=== PATIENT | male | born 1955 | race Caucasian/White ===

== ENCOUNTER → 2017-11-17 15:29 | Outpatient (CLI) | payer BC, SELFPAY ==
[2017-11-17 18:29] LABS: HIV - WCH Non-Reactive (Nonreactive)
[2017-11-19 13:57] LABS: Hep B Surface Antibodies Non Reactive (.); Hep C Antibodies 0.1 s/co ratio (0.0-0.9)
== END ==
PROVIDERS: Family Provider Family Medicine; PCP Family Medicine; Visit Provider Family Medicine
DX: S91.332A Puncture wound without foreign body, left foot, initial encounter (principal)
CPT/HCPCS: 36415; 86703; 86706; 86803

== ENCOUNTER → 2018-01-05 13:46 | Outpatient (CLI) | payer OTHER, SELFPAY ==
[2018-01-05 16:19] LABS: PSA,Total - Annual Screen 4.14 ng/mL (0.00-4.00)
== END ==
PROVIDERS: Family Provider Family Medicine; PCP Family Medicine; Visit Provider Urology
DX: Z12.5 Encounter for screening for malignant neoplasm of prostate (principal)
CPT/HCPCS: 36415; 84153; G0103

== ENCOUNTER → 2018-03-16 10:48 | Outpatient (CLI) | payer OTHER, SELFPAY ==
[2018-03-16 13:36] LABS: HIV - WCH Non-Reactive (Nonreactive)
[2018-03-20 11:17] LABS: HEPATITIS B SURFACE AG Negative (Negative); Hep C Antibodies 0.1 s/co ratio (0.0-0.9)
== END ==
PROVIDERS: Family Provider Family Medicine; PCP Family Medicine; Visit Provider Family Medicine
DX: S91.339A Puncture wound without foreign body, unspecified foot, initial encounter (principal)
CPT/HCPCS: 36415; 86703; 86803; 87340

== ENCOUNTER → 2018-07-16 15:18 | Outpatient (CLI) | payer OTHER, SELFPAY ==
[2018-07-16 17:57] LABS: PSA,Total- Diagnostic 4.15 ng/mL (0.0-4.0)
== END ==
PROVIDERS: Family Provider Family Medicine; PCP Family Medicine; Referring Provider Urology; Visit Provider Urology
DX: R97.20 Elevated prostate specific antigen [PSA] (principal)
CPT/HCPCS: 36415; 84153

== ENCOUNTER → 2018-07-25 09:21 | Outpatient (CLI) | payer OTHER, SELFPAY ==
[2018-07-25 10:24] LABS: Cholesterol 132 mg/dL (200); Glucose 90 mg/dL (74-106); High Density Lipoprotein 40 mg/dL; Triglycerides 65 mg/dL; Very Low Density Lipoprotein 13 mg/dL (5-40)
== END ==
PROVIDERS: Family Provider Family Medicine; PCP Family Medicine; Referring Provider Family Medicine; Visit Provider Family Medicine
DX: Z00.00 Encounter for general adult medical examination without abnormal findings (principal)
CPT/HCPCS: 36415; 80061; 82947

== ENCOUNTER → 2019-10-31 | Outpatient (CLI) | payer OTHER, SELFPAY ==
[2019-10-31 16:02] LABS: Anion Gap 6 (5-15); BUN 13 mg/dL (7-18); BUN/Creat Ratio 13.9 RATIO (10-20); Calcium,Total 8.4 mg/dL (8.5-10.1); Chloride 109 mmol/L (98-107); Cholesterol 153 mg/dL (200); Creatinine, Serum 0.94 mg/dL (0.70-1.30); EST Glomerular Filtration Rate 87 mL/min (>60); Est Glom Filt Rate - Afr Amer 105 mL/min (>60); Glucose 93 mg/dL (74-106); High Density Lipoprotein 41 mg/dL; Potassium 3.9 mmol/L (3.5-5.1); Sodium Level 142 mmol/L (136-145); Triglycerides 92 mg/dL; Very Low Density Lipoprotein 18 mg/dL (5-40)
== END | disposition home or self-care (01) ==
LOC: MTLAB 14:25
PROVIDERS: PCP Family Medicine; Referring Provider Family Medicine; Visit Provider Family Medicine
DX: Z13.1 Encounter for screening for diabetes mellitus (principal); Z13.220 Encounter for screening for lipoid disorders
CPT/HCPCS: 36415; 80048; 80061

== ENCOUNTER 2020-08-18 15:06 | Outpatient (RCR) | payer OTHER, SELFPAY ==
[2020-08-18] MEDS: COVID-19 VACC, MRNA(PFIZER)/PF 30 MCG/0.3 ML SYRINGE IM (07:11)
[2020-09-08] MEDS: COVID-19 VACC, MRNA(PFIZER)/PF 30 MCG/0.3 ML SYRINGE IM (07:03)
== END 2020-11-10 23:59 ==
LOC: IMMUN 15:06
PROVIDERS: PCP Family Medicine; Referring Provider Family Medicine; Visit Provider Family Medicine
DX: Z23 Encounter for immunization (principal)
CPT/HCPCS: 0001A; 0002A; 91300

== ENCOUNTER → 2020-09-25 09:25 | Outpatient (CLI) | payer OTHER, SELFPAY ==
--- NOTE | 2020-09-25 09:28 | RAD_ITS ---
INDICATION: SHORTNESS OF BREATH EXAMINATION/TECHNIQUE: X-RAY - XR Chest 2 Views COMPARISON: None. FINDINGS: The lungs are clear. The cardiomediastinal silhouette is unremarkable. No pleural effusion or pneumothorax. No acute osseous abnormalities. RAD/Chest PA and Lateral IMPRESSION: No acute radiographic abnormalities. Electronically Signed: Jesse Buitrago MD at 17:03 EDT Tel , Service support ,
[2020-09-25 12:47] LABS: Absolute Lymphocyte Count 1.13 X10^3/uL (0.83-4.51); Basophil# 0.08 X10^3/uL; Basophil% 1.2 % (0-1); Eosinophil# 0.59 X10^3/uL; Eosinophils% 9.2 % (0-5); Hematocrit 47.1 % (40-54); Hemoglobin 14.6 g/dL (13.0-16.5); Lymphocyte # 1.13 X10^3/ul (0.83-4.51); Lymphocyte % 17.6 % (19-41); Mean Corpuscular Hgb 28.6 pg (27.0-32.0); Mean Corpuscular Volume 92.4 fL (80-94); Mean Platelet Vol. 10.4 fl (6.2-12.0); Monocyte# 0.58 X10^3/uL; NRBC Flagged by Analyzer 0 % (0-5); Neutrophil % 62.5 % (47-70); Platelet Count 282 K/mm3 (150-450); RBC Distribution Width CV 12.9 % (11.6-14.6); RBC Distribution Width SD 44.2 fl (35.1-43.9); White Blood Count 6.4 K/mm3 (4.4-11.0)
[2020-09-25 13:15] LABS: ALB/GLOB Ratio 1.1 RATIO (0.9-2.4); AST(SGOT) 17 U/L (15-37); Alanine Aminotransfer ALT/SGPT 26 U/L (16-61); Albumin, Serum 3.9 g/dL (3.2-5.0); Alkaline Phosphatase 56 U/L (45-117); Anion Gap 3 (5-15); BUN 11 mg/dL (7-18); BUN/Creat Ratio 10.5 RATIO (10-20); Calcium,Total 8.8 mg/dL (8.5-10.1); Chloride 106 mmol/L (98-107); Creatinine, Serum 1.05 mg/dL (0.70-1.30); EST Glomerular Filtration Rate 76 mL/min (>60); Est Glom Filt Rate - Afr Amer 92 mL/min (>60); Globulin 3.5 g/dL (2.2-4.2); Glucose 86 mg/dL (74-106); Magnesium 2.2 mg/dL (1.6-2.6); Potassium 4.3 mmol/L (3.5-5.1); Protein, Total 7.4 g/dL (6.4-8.2); Sodium Level 140 mmol/L (136-145); Thyroid Stim Hormone (TSH) 2.74 uIU/mL (0.358-3.74)
== END ==
PROVIDERS: PCP Family Medicine; Referring Provider Family Medicine; Visit Provider Family Medicine
DX: R00.2 Palpitations (principal); R06.02 Shortness of breath
CPT/HCPCS: 36415; 71046; 80053; 83735; 84443; 85025

== ENCOUNTER → 2020-10-12 13:05 | Outpatient (CLI) | payer OTHER, SELFPAY ==
--- NOTE | 2020-10-12 13:11 | STEWCON_ITS ---
Reason For Study: SOB Stress Results Protocol: Sammy Protocol WITH DEFINITY Maximum Predicted HR: 157 bpm Target HR: 133 bpm % Maximum Predicted HR: 96 % DurationHeart Rate Stage (mm:ss) (bpm) BP Comment BASELINE 62 152/824 CC DEFINITY FOR TEST STAGE 1 3:00 93 160/84 STAGE 2 3:00 100 142/74 STAGE 3 3:00 127 168/78NO CHEST PAIN STAGE 4 3:00 150 170/74STATES BREATHING HARDER, NO CHEST PAIN RECOVERY 83 132/80 Stress Duration: 12:00 mm:ss Maximum Stress HR: 150 bpm Baseline Echocardiogram Findings Stress Echo Wall motion Data Resting WM Intermediate WM Stress WM ECHO/Stress Test Echo W/Contrast Interpretation Summary Exercise stress echo. 65-year-old man with a family history of heart disease. Stress protocol: Resting EKG demonstrates normal sinus rhythm with a rate of 60 bpm normal inter vals noted resting blood pressures 152/82 mmHg. The patient exercised according to regular Sammy p rotocol for a total duration of 12 minutes. The maximum heart rate attained was 151 bpm which was 9 6% of maximum predicted heart rate the maximum workload was 13.4 metabolic equivalents. The p atient maintained sinus rhythm throughout the recording. At rest there were no ST changes noted t o suggest ischemia and at peak exercise upsloping ST changes were noted with did not denote ischem ia. No clinical angina was noted. The resting blood pressure was as noted above and the peak bl ood pressure was 170/74 mmHg which was a good blood pressure response to exercise. No clinical a ngina was noted. Stress echocardiogram. Stress echocardiographic images were obtained with and w ithout Definity enhancement. The estimated ejection fraction was 55% at rest and at peak exerci se there was thickening of all bhakta and reduction of left ventricular cavity size with peak ing of ejection fraction of 65% no wall motion abnormalities were noted. Conclusion: Normal exercise stress echo with no EKG criteria for ischemia. Normal resting and stress echocardiographic images. Good functional capacity. Ordering Physician: Yg Alcaraz Referring Physician: Yg Alcaraz Performed By: Dinorah Collazo RDCS, RVT
== END ==
PROVIDERS: PCP Family Medicine; Referring Provider Family Medicine; Visit Provider Family Medicine
DX: R06.02 Shortness of breath (principal)
CPT/HCPCS: 93017; 93350; Q9957; A4216; C8928

== ENCOUNTER → 2021-01-08 08:31 | Outpatient (CLI) | payer OTHER, SELFPAY | PROVIDERS: PCP Family Medicine; Referring Provider Nurse Practitioner Adult Health; Visit Provider Nurse Practitioner Adult Health | DX: R97.20 Elevated prostate specific antigen [PSA] (principal) | CPT/HCPCS: 36415; 84153 ==

== ENCOUNTER → 2021-01-28 11:27 | Outpatient (CLI) | payer OTHER, SELFPAY ==
--- NOTE | 2021-01-28 11:30 | RAD_ITS ---
INDICATION: COUGH EXAMINATION/TECHNIQUE: X-RAY - XR Chest 2 Views COMPARISON: 09/25/2020. FINDINGS: The lungs are clear. The cardiomediastinal silhouette is unremarkable. No pleural effusion or pneumothorax. No acute osseous abnormalities. RAD/Chest PA and Lateral IMPRESSION: No acute radiographic abnormalities. Electronically Signed: Jesse Buitrago MD at 17:25 EDT Tel , Service support ,
== END ==
PROVIDERS: PCP Family Medicine; Referring Provider Family Medicine; Visit Provider Family Medicine
DX: R05 Cough (principal)
CPT/HCPCS: 71046

== ENCOUNTER → 2021-02-02 | Outpatient (CLI) | payer OTHER, SELFPAY ==
--- NOTE | 2021-02-02 | IMM_PTH ---
PATIENT: SRI MEADOWS LOC: [facility] U#:[id number] AGE/SX: 65/M ROOM: RE02/02/[address]: Dr. Magno Clemons MD : 1955 BED: DIS: 02/02/2021 SPEC #: [id number] RECD: 02/03/21 14:46 STATUS: ELAINA REQ #: [id number] KIMO: 02/02/21 00:[address]: Magno Clemons DEPT: IMMUNOHISTOCHEMISTRY RECD BY: Keren Dominguez ENTERED: 02/03/21 14:46 SP TYPE: IMMUNO OTHR DR: Dr. Yg Alcaraz MD Tissues: A - PROSTATE RIGHT Procedures: P40 (add) 34BE12 (initial) S-100 (add) PHYSICIAN & INSTITUTION [place] [id number] SPECIMEN INFORMATION: Tissue Source: A - Right prostate, apex, core biopsy Clinical Info: R97.20 Specimen Number: [id number] CPT code: 09245, 16999 x2 METHODOLOGY: Deparaffinized sections of prefer/formalin-fixed tissue or PAP/DQ stained slides are incubated with monoclonal/polyclonal antibodies/oligonucleotide probes. Localization is made via biotin free immunoperoxidase method. Appropriate controls are performed and reacted as expected. Results on target cell population are indicated in the following table: RESULTS: ANTIBODY / CLONE RESULT Block A P40 (BC28) negative 34BE12 (34BE12) negative S-100 (4C4.9) negative These tests were developed and their performance characteristics determined by [facility]. They may not have been cleared or approved by the U.S. Food and Drug Administration. The FDA has determined that such clearance or approval is not necessary. The above immunohistochemical/dualISH markers are ordered and reviewed by the Pathologist. INTERPRETATION: A. Right prostate, apex, core biopsy: Adenocarcinoma. No evidence of perineural invasion. AM:omar 02/04/2021
--- NOTE | 2021-02-02 08:00 | PROSBIL_PTH ---
PATIENT: SRI MEADOWS LOC: GEO U#:[id number] AGE/SX: 65/M ROOM: RE02/02/[address]: Dr. Magno Clemons MD : 1955 BED: DIS: 02/02/2021 SPEC #: [id number] RECD: 02/02/21 11:09 STATUS: ELAINA REMaría #: [id number] KIMO: 02/02/21 08:[address]: Magno Clemons DEPT: SURGICAL PATHOLOGY RECD BY: Jenny Vazquez ENTERED: 02/02/21 11:45 SP TYPE: PROST BX FLORIAN DR: Dr. Yg Alcaraz MD Tissues: A - PROSTATE RIGHT B - PROSTATE RIGHT C - PROSTATE RIGHT D - PROSTATE LEFT E - PROSTATE LEFT F - PROSTATE LEFT Procedures: PROSTATE BX HEADER OPERATION: Prostate biopsy PRE-OP DIAGNOSIS: R97.20 TISSUE SUBMITTED: A - Right apex, B - Right mid, C - Right base, D - Left apex, E - Left mid, F - Left base MICROSCOPIC DIAGNOSIS A. Right prostate, apex, core biopsy: Adenocarcinoma. Gary grade: 6 (3+3) Cores involved: 1 out of 2 cores Tissue involved: 2% Greatest tumor length: 1.2 millimeters See comment. B. Right prostate, mid, core biopsy: Focal high-grade prostatic intraepithelial neoplasia (HGPIN). C. Right prostate, base, core biopsy: Benign prostatic tissue. D. Left prostate, apex, core biopsy: Adenocarcinoma. Gary grade: 6 (3+3) Cores involved: 1 out of 2 cores Tissue involved: 20% Greatest tumor length: 4 millimeters Perineural invasion: Present Other findings: Chronic inflammation with focal acute inflammation. E. Left prostate, mid, core biopsy: Adenocarcinoma. Levi grade: 7 (3+4) Cores involved: 2 out of 2 cores Tissue involved: 65% Greatest tumor length: 11 millimeters F. Left prostate, base, core biopsy: Focal high-grade prostatic intraepithelial neoplasia (HGPIN). Minimal chronic inflammation. AM:omar 02/03/2021 COMMENT A. Immunohistochemistry ([id number]) supports the above diagnosis. Case has been reviewed in consultation with Dr. Corrales who concurs with the above diagnosis. IDC:SJ MICROSCOPIC DESCRIPTION Slides are reviewed. GROSS DESCRIPTION A - Received is one container designated prostate, right apex. The specimen consists of two elongated fragments of light ornelas-white soft tissue each measuring 1.2 cm in length and 0.1 cm in diameter. The specimen is totally submitted in one cassette. B - Received is one container designated prostate, right mid. The specimen consists of one elongated fragment of light ornelas-white soft tissue measuring 1.2 cm in length and 0.1 cm in diameter. The specimen is totally submitted in one cassette. C - Received is one container designated prostate, right base. The specimen consists of one elongated fragment of light ornelas-white soft tissue measuring 1 cm in length and 0.1 cm in diameter. The specimen is totally submitted in one cassette. D - Received is one container designated prostate, left apex. The specimen consists of two elongated fragments of light ornelas-white soft tissue each measuring 1.1 cm in length and 0.1 cm in diameter. The specimen is totally submitted in one cassette. E - Received is one container designated prostate, left mid. The specimen consists of two elongated fragments of light ornelas-white soft tissue each measuring 1 cm in length and 0.1 cm in diameter. The specimen is totally submitted in one cassette. F - Received is one container designated prostate, left base. The specimen consists of two elongated fragments of light ornelas-white soft tissue measuring 0.5 and 1 cm in length and 0.1 cm in diameter. The specimen is totally submitted in one cassette. / SJ:omar 02/02/21 TC:0 [facility]: [id number] x6
== END | disposition home or self-care (01) ==
LOC: LABSPEC 11:23
PROVIDERS: PCP Family Medicine; Referring Provider Urology; Visit Provider Urology
DX: R97.20 Elevated prostate specific antigen [PSA] (principal)
CPT/HCPCS: 88305; 88341; 88342; G0416

== ENCOUNTER → 2021-02-18 08:45 | Outpatient (CLI) | payer OTHER, SELFPAY ==
--- NOTE | 2021-02-18 08:51 | NM_ITS ---
CLINICAL: 66-year-old male with reported history of carcinoma of the prostate. WHOLE BODY 99m Tc MDP RADIONUCLIDE BONE SCINTIGRAPHY COMPARISON: None available FINDINGS: Following the intravenous administration of 25.0 mCi of 99m Tc MDP, whole body bone images reveal: 1. Increased radiopharmaceutical concentration appears defined in the right mid tibial diaphysis. 2. Facilitated uptake is observed in the upper cervical spine posteriorly on the left, the acromioclavicular and sternoclavicular compartments of both shoulders, glenohumeral compartment of the right shoulder, the right elbow, bilateral knees, right ankle and left midfoot. 3. The remaining skeletal structures are scintigraphically unremarkable with normal-appearing renal images and urinary bladder activity identified. Enhanced tracer distribution is observed in the bilateral maxilla most consistent with periodontal disease and/or periostitis. NM/Bone Scan Whole Body IMPRESSION: 1. The increase in radiotracer uptake visualized in the presumably asymptomatic right mid tibial diaphysis consistent with apparent uncomplicated trauma-fracture and orthopedic hardware placement. 2. Degenerative arthritis appears expressed in the cervical spine, bilateral shoulders, right elbow, both knees, the right ankle and left midfoot. Electronically Signed: Eh Holloway DO at 22:44 EDT Tel , Service support ,
== END ==
PROVIDERS: PCP Family Medicine; Referring Provider Urology; Visit Provider Urology
DX: C61 Malignant neoplasm of prostate (principal)
CPT/HCPCS: 78306; A9503

== ENCOUNTER → 2021-02-23 12:47 | Outpatient (CLI) | payer OTHER, SELFPAY ==
--- NOTE | 2021-02-23 12:50 | CT_ITS ---
STUDY: CT ABDOMEN AND PELVIS WITH CONTRAST REASON FOR EXAM: Male, 66 years old. Newly diagnosed prostate cancer. RADIATION DOSAGE (If Supplied By Facility): CTDIvol = ( 13.17 ) mGy, DLP = ( 674.50 ) mGycm TECHNIQUE: Transaxial images were obtained from the dome of the diaphragm to the symphysis pubis without oral contrast. IV 100mL Isovue-370 was administered. Sagittal and coronal images were reconstructed. Individualized dose optimization techniques were used for this CT. COMPARISON: None. FINDINGS: The visualized lung bases are unremarkable. The visualized portions of the heart are within normal limits. There is decreased attenuation of the liver consistent with steatosis. There are multiple gallstones. Normal spleen. Normal pancreas. Normal bilateral adrenal glands. Normal right kidney. Normal left kidney. There is a small hiatal hernia. Diffuse circumferential wall thickening and edematous changes involving the terminal ileum. This extends into the region of the cecum. Crohn''s disease should be ruled out. There are multiple colonic diverticula consistent with diverticulosis. Normal abdominal aorta. Normal inferior vena cava. Normal retroperitoneum. Normal urinary bladder. Heterogeneous enlargement of the prostate. The prostate measures 5.4 cm x 3.5 sinus. There is diffuse enlargement of the seminal vesicles. There is a small umbilical hernia containing fat. Disc space narrowing and disc degradation at the L5-S1 level. CT/Abdomen/Pelvis W IV Cont ONLY IMPRESSION: Heterogeneous enlargement of the prostate. Enlargement of the seminal vesicles. Inflammatory changes involving the terminal ileum as well as the cecum. Sigmoid diverticulosis. Gallstones. Electronically Signed: Estevan Castillo MD at 14:10 EDT , Service support ,
[2021-02-23 13:01] LABS: CREATININE FINGERSTICK 1.1 mg/dL (0.70-1.30); EGFR FINGERSTICK > 60.0000 mL/min (>60)
== END ==
PROVIDERS: PCP Family Medicine; Referring Provider Urology; Visit Provider Urology
DX: C61 Malignant neoplasm of prostate (principal)
CPT/HCPCS: 74177; Q9967

== ENCOUNTER 2021-03-23 09:35 | Day surgery (SDC) | payer OTHER, SELFPAY ==
--- NOTE | 2021-03-23 09:54 | HP.PCM_ITS ---
History and Physical Date of Admission: 03/23/21 Date of Service: 03/17/21 MR#:[id number]:[id number]: SRI MEADOWS CRe #:[id number]:[id number] Provider:Abby Cleaning/Sex: 66/M [facility] Int[facility] Vital Signs 03/17/21 13:33 Height 5 ft 10 in Weight: 181 lb BMI 25.9 BP 154/91 H Blood Pressure Location Rt brachial Position Sitting Respiration 18 Intake Visit Reasons: EGD, GERD Chief Complaint: EGD/GERD Pantry Steward/Stewardess Required: No Is patient in pain?: No Allergies No Known Allergies Allergy (Unverified 03/17/21 13:34) Medications fluticasone propionate 50 mcg/actuation nasal spray,suspension gm INTRANASAL 03/17/21 [History Confirmed 03/17/21] pantoprazole 40 mg tablet,delayed release ea PO 03/17/21 [History Confirmed 03/17/21] PFSH Medical History Broken leg GERD (gastroesophageal reflux disease) Prostate cancer Serous retinal detachment, left eye Family History Father Heart disease Social History Smoking Status: Former smoker alcohol intake: current alcohol intake frequency: holidays/special occasions only HPI HPI HPI: SRI MEADOWS, is a 66 M who presents to the office today for EGD due to reflux. Patient has seen Dr. Chavez and has been on Protonix for the last 3 months denies any abdominal pain or burning up his esophagus which he previously did have. However patient still has some clear sounds like mucousy reflux and has had occasional blood streaks in it previously was about 9 months ago and he was drinking a lot of coffee but he did have it once about a week ago. Patient states that when he wakes up in the morning he does feel like he has stuff in his throat he does spit it out to take a look at it. Patient is scheduled for a prostatectomy with Dr. Clemons on 03/31 due to prostate cancer. Patient states he has bowel moods daily denies any blood denies any family history of colon cancer. Patient's last scope was about 10 years ago negative per patient?done by Dr. Artis. ROS General General: No weight change, appetite, fatigue, colon cancer, breast cancer or weakness HEENT HEENT: Yes eye injury and eye surgery; No difficulty swallowing, swollen glands or hoarseness Endo Endocrine: No thyroid disease, diabetes mellitus, thyroid cancer, Hair loss, heat intolerance or cold intolerance Skin Skin: No rash or changing moles Breast Breast: No left breast lump, right breast lump, nipple discharge, breast pain, abnormal mammogram, abnormal US or breast enlargement Musc Musculoskeletal: No back problems, arthritis, rheumatoid arthritis, gout or joint pain Cardio Cardiovascular: No murmur, pacemaker, heart disease, atrial fibrillation, high blood pressure, heart attack, heart stent, palpitations, shortness of breat with exertion or chest pain Psych Psychiatric: Yes anxiety; No depression or hearing voices Resp Respiratory: No shortness of breath, No sleep apnea, No cough, No COPD, No asthma, No emphysema and No wheezing Gastro Gastrointestinal: Yes abdominal pain, No nausea or vomiting, Yes diarrhea, No constipation, No blood in stool, Yes acid reflux, No hemorrhoids, No ulcers, No gallbladder problem and No black,tarry stools Jose Hematologic: No blood thinners, No blood disorders, No bleeding, No anemia and No blood clots Neuro Neurologic: No system reviewed and no additional complaints, except as documented, No as per HPI, No abnormal gait, No abnormal hearing, No abnormal mo vements, No abnormal speech, No behavioral changes, No burning sensations, No confusion, No convulsions, No disequilibrium, No dizziness, No localized weakness, No frequent falls, No headache(s), No lack of coordination, No loss of vision, No memory loss, Yes numbness, No other visual disturbances, No radicular pain, No restless legs, No sensory deficit, No syncope, Yes tingling, No tremor(s), No weakness and No other Exam Const General: cooperative, healthy appearing, comfortable and no acute distress Neck Neck: normal visual inspection Resp Effort & Inspection: normal respiratory effort Cardio Rate: regular rate GI Inspection: non-distended Palpation: soft, no guarding and nontender Skin General: no rashes or lesions noted Neuro General: patient oriented x3 Psych Affect: normal affect COVID (Procedure Consent) Procedure Criteria Procedure Criteria: Yes Elective The surgeon/proceduralist and patient have discussed in detail the risk of exposure to and/or potential harm posed by the COVID-19 virus with having a surgery/procedure at this time versus the risk of delaying the surgery/procedure. It is not possible to know either the risk of delaying the surgery or procedure or chance of getting an infection with perfect accuracy, but a joint decision was made between the patient and the surgeon/proceduralist to proceed at this time with the scheduled surgery/procedure as indicated on the consent form. Assessment and Plan Assessment and Plan (1) GERD (gastroesophageal reflux disease): Status: Acute (2) Screening for colon cancer: Status: Acute Plan - Dr. Ashley Hsu MD: I have discussed the above with the patient. I have offered the patient EGD and colonoscopy for evaluation. I have explained the risks/benefits of the procedure and described the procedure. I have discussed the risks with the patient, including but not limited to: infection, bleeding, perforation of the GI tract requiring emergency surgery, inability to complete the procedure, injury to any internal organs, complications of anesthesia, etc. - the patient understands and agrees to proceed. I have answered all the patient's questions to the patient's satisfaction and the patient has no further questions. The patient has been given instructions for the colon cleansing preparation. 1 day of clears, MiraLAX Dulcolax split prep. Ashley Hsu M.D. Pager: [phone] [facility] [address] [place] [address] [address] [place] [address] Office: [phone] Plan Details Follow Up: We will schedule EGD and colonoscopy Coding Level of Care Code Off vis,new,level 3 Diagnoses GERD (gastroesophageal reflux disease) K21.9 Screening for colon cancer Z12.11 03/17/21 1347<Electronically signed by Ashley Hsu MD>Date Ashley Hsu MD
[2021-03-23 09:58] VITALS: BP 163/90; PULSE 74; RESP 16; TEMP 36.1; O2SAT 100; BMI 24.8
[2021-03-23] MEDS: Lactated Ringers 1,000 ML 100 ML IV (10:12)
--- NOTE | 2021-03-23 11:00 | EGD_PTH ---
PATIENT: SRI MEADOWS LOC: EN U#:[id number] AGE/SX: 66/M ROOM: RE03/23/[address]: Dr. Ashley Hsu MD : 1955 BED: DIS: 03/23/2021 SPEC #: [id number] RECD: 03/23/21 11:40 STATUS: ELAINA REMaría #: [id number] KIMO: 03/23/21 11:[address]: Ashley Hsu DEPT: SURGICAL PATHOLOGY RECD BY: Jenny Vazquez ENTERED: 03/23/21 12:56 SP TYPE: EGD BIOPSY OT DR: Dr. Yg Franklin MD Tissues: A - Duodenum, NOS B - Gastric mucous membrane C - Stomach, NOS D - Ileum, NOS E - Cecum, NOS Procedures: Special Stain Group II Surgery Specimen Level IV Alcian Blue/PAS (control) HEADER OPERATION: [place] [place] PRE-OP DIAGNOSIS: GERD, screening for colon cancer TISSUE SUBMITTED: A ? Biopsy of duodenal bulb, B ? Biopsy of antrum for H. pylori and path, C ? GE junction biopsy, D ? Terminal ileum biopsy, E ? Ileocecal valve nodule MICROSCOPIC DIAGNOSIS A. Duodenal bulb, biopsy: Mild Sebastian?s gland hyperplasia. B. Gastric antrum, biopsy: Mild chronic gastritis. See comment. C. Gastroesophageal junction, biopsy: Mild chronic inflammation. Focal changes of reflux. No evidence of goblet cell metaplasia. See comment. D. Terminal ileum, biopsy: Focal acute colitis. Fibrinopurulent material. E. Ileocecal valve nodule, biopsy: Suggestive of mucosal lipoma. AM:omar 03/24/2021 COMMENT B. The results of immunohistochemistry for Helicobacter pylori will be reported separately ([id number]). C. Alcian blue/PAS stain with matched control supports the above diagnosis. MICROSCOPIC DESCRIPTION Slides are reviewed. GROSS DESCRIPTION A - Received in fixative is one container labeled with the patient's name and designated duodenum bulb. The specimen consists of one irregular fragment of light ornelas soft tissue that measures 0.5 x 0.5 x 0.1 cm. The specimen is totally submitted in one cassette. B - Received in fixative is one container labeled with the patient's name and designated antrum biopsy. The specimen consists of two irregular fragments of light ornelas soft tissue that in aggregate measure 0.7 x 0.5 x 0.1 cm. The specimen is totally submitted in one cassette. C - Received in fixative is one container labeled with the patient's name and designated GE junction biopsy. The specimen consists of multiple irregular fragments of light ornelas soft tissue that in aggregate measure 0.7 x 0.6 x 0.1 cm. The specimen is totally submitted in one cassette. D - Received in fixative is one container labeled with the patient's name and designated terminal ileum biopsy. The specimen consists of two irregular fragments of light ornelas soft tissue that in aggregate measure 1 x 0.6 x 0.1 cm. The specimen is totally submitted in one cassette. E - Received in fixative is one container labeled with the patient's name and designated ileocecal valve nodule. The specimen consists of multiple irregular fragments of light ornelas soft tissue that in aggregate measure 0.7 x 0.6 x 0.2 cm. The specimen is totally submitted in one cassette. / AM:omar 03/23/21 TC:2 CPT: 37013 x5, 84966
--- NOTE | 2021-03-23 11:00 | IMM_PTH ---
PATIENT: SRI MEADOWS LOC: [facility] U#:[id number] AGE/SX: 66/M ROOM: RE03/23/[address]: Dr. Ashley Hsu MD : 1955 BED: DIS: 03/23/2021 SPEC #: [id number] RECD: 03/23/21 13:00 STATUS: ELAINA REQ #: [id number] KIMO: 03/23/21 11:[address]: Ashley Hsu DEPT: IMMUNOHISTOCHEMISTRY RECD BY: Keren Dominguez ENTERED: 03/23/21 13:01 SP TYPE: IMMUNO OTHR DR: Dr. Yg Franklin MD Tissues: B - Stomach, NOS Procedures: H Pylori (initial) PHYSICIAN & INSTITUTION [place] [address] SPECIMEN INFORMATION: Tissue Source: B ? Antrum biopsy Clinical Info: GERD, screening for colon cancer Specimen Number: [id number] CPT code: 02419 METHODOLOGY: Deparaffinized sections of prefer/formalin-fixed tissue or PAP/DQ stained slides are incubated with monoclonal/polyclonal antibodies/oligonucleotide probes. Localization is made via biotin free immunoperoxidase method. Appropriate controls are performed and reacted as expected. Results on target cell population are indicated in the following table: RESULTS: ANTIBODY / CLONE RESULT Block B H Pylori (polyclonal) negative These tests were developed and their performance characteristics determined by [facility]. They may not have been cleared or approved by the U.S. Food and Drug Administration. The FDA has determined that such clearance or approval is not necessary. INTERPRETATION: B. Antrum biopsy: Negative for Helicobacter pylori organisms. AM:omar 03/24/2021
[2021-03-23 11:10] VITALS: BP 124/77; BP 163/90; PULSE 70; RESP 16; TEMP 35.8; O2SAT 93
--- NOTE | 2021-03-23 11:12 | OP.EGD_ITS ---
Patient Name: Lisandro Yun Procedure Date: 03/23/2021 10:10 AM Date of : 1955 Age: 66 Procedure: Upper GI endoscopy Indications: Suspected esophageal reflux Providers: Ashley Hsu MD Referring MD: Ashley Hsu MD Medicines: Monitored Anesthesia Care Patient Profile: This is a 66 year old male. Complications: No immediate complications. Procedure: Pre-Anesthesia Assessment: - Prior to the procedure, a History and Physical was performed, and patient medications and allergies were reviewed. The patient's tolerance of previous anesthesia was also reviewed. The risks and benefits of the procedure and the sedation options and risks were discussed with the patient. All questions were answered, and informed consent was obtained. Prior Anticoagulants: The patient has taken no previous anticoagulant or antiplatelet agents. ASA Grade Assessment: Per anesthesia. After reviewing the risks and benefits, the patient was deemed in satisfactory condition to undergo the procedure. After obtaining informed consent, the endoscope was passed under direct vision. Throughout the procedure, the patient's blood pressure, pulse, and oxygen saturations were monitored continuously. The Endoscope was introduced through the mouth, and advanced to the second part of duodenum. The upper GI endoscopy was accomplished without difficulty. The patient tolerated the procedure well. Scope In: 10:23:10 AM Scope Out: 10:29:44 AM Total Procedure Duration Time 0 hours 6 minutes 34 seconds Findings: The Z-line was variable and was found 40 cm from the incisors. Biopsies were taken with a cold forceps for histology. Patchy mildly erythematous mucosa was found in the duodenal bulb. Biopsies were taken with a cold forceps for histology. Mildly erythematous mucosa without bleeding was found in the gastric antrum. Biopsies were taken with a cold forceps for histology. Biopsies were taken with a cold forceps for Helicobacter pylori cultures. The second portion of the duodenum was normal. Impression: - Z-line variable, 40 cm from the incisors. Biopsied. - Erythematous duodenopathy. Biopsied. - Erythematous mucosa in the antrum. Biopsied. - Normal second portion of the duodenum. Recommendation: - Await pathology results. - Discharge patient to home. - Resume previous diet. - Continue present medications. Procedure Code(s): --- Professional --- 02197, Esophagogastroduodenoscopy, flexible, transoral; with biopsy, single or multiple Diagnosis Code(s): --- Professional --- K22.8, Other specified diseases of esophagus K31.89, Other diseases of stomach and duodenum CPT copyright 2017 [employer]. All rights reserved. The codes documented in this report are preliminary and upon carpenter foreman review may be revised to meet current compliance requirements. MD Ashley Nogueira MD 03/23/2021 11:11:43 AM This report has been signed electronically. Number of Addenda: 0 Note Initiated On: 03/23/2021 10:10 AM
--- NOTE | 2021-03-23 11:13 | OP.CCLET_ITS ---
03/23/2021 [facility] [place] [address] [place] [address] Re : Upper GI endoscopy procedure for Lisandro Yun Dear Dr. [place] This procedure was performed on Tuesday, March 23, 2021. My impressions and recommendations are as follows: Impressions : - Z-line variable, 40 cm from the incisors. Biopsied. - Erythematous duodenopathy. Biopsied. - Erythematous mucosa in the antrum. Biopsied. - Normal second portion of the duodenum. Recommendations : - Await pathology results. - Discharge patient to home. - Resume previous diet. - Continue present medications. My findings are described in the full procedure note, which is enclosed. If I can be of further assistance, please feel free to contact me at Doctor phone number(s): , Work: . Sincerely, MD Ashley Nogueira MD 03/23/2021 11:11:43 AM This report has been signed electronically.
[2021-03-23 11:15] VITALS: BP 119/73; BP 163/90; PULSE 71; RESP 16; O2SAT 93
[2021-03-23 11:20] VITALS: BP 124/75; BP 163/90; PULSE 68; RESP 16; O2SAT 95
--- NOTE | 2021-03-23 11:24 | OP.COLON_ITS ---
Patient Name: Lisandro Yun Procedure Date: 03/23/2021 10:31 AM Date of : 1955 Age: 66 Procedure: Colonoscopy Indications: Screening for colorectal malignant neoplasm Providers: Ashley Hsu MD Referring MD: Ashley Hsu MD Medicines: Monitored Anesthesia Care Patient Profile: This is a 66 year old male. Last Colonoscopy: 10 years ago. Complications: No immediate complications. Procedure: Pre-Anesthesia Assessment: - Prior to the procedure, a History and Physical was performed, and patient medications and allergies were reviewed. The patient's tolerance of previous anesthesia was also reviewed. The risks and benefits of the procedure and the sedation options and risks were discussed with the patient. All questions were answered, and informed consent was obtained. Prior Anticoagulants: The patient has taken no previous anticoagulant or antiplatelet agents. ASA Grade Assessment: Per anesthesia. After reviewing the risks and benefits, the patient was deemed in satisfactory condition to undergo the procedure. After I obtained informed consent, the scope was passed under direct vision. Throughout the procedure, the patient's blood pressure, pulse, and oxygen saturations were monitored continuously. The Colonoscope was introduced through the anus and advanced to the terminal ileum. The colonoscopy was performed without difficulty. The patient tolerated the procedure well. The quality of the bowel preparation was good. Scope In: 10:32:45 AM Scope Withdrawal Time 0 hours 24 minutes 45 seconds Scope Out: 11:05:39 AM Total Procedure Duration Time 0 hours 32 minutes 54 seconds Findings: Hemorrhoids were found on perianal exam. Non-bleeding internal hemorrhoids were found. The hemorrhoids were Grade I (internal hemorrhoids that do not prolapse). A localized area of mucosa in the terminal ileum was moderately erythematous. Biopsies were taken with a cold forceps for histology. The ileocecal valve contained one semi-pedunculated, non-bleeding polyp. The polyp was 4 mm in diameter. The polyp was removed with a hot snare. Resection and retrieval were complete. The exam was otherwise without abnormality. Impression: - Hemorrhoids found on perianal exam. - Non-bleeding internal hemorrhoids. - Erythematous mucosa in the terminal ileum. Biopsied. - One ileal polyp in the ileocecal valve, removed with a hot snare. Resected and retrieved. - The examination was otherwise normal. Recommendation: - Discharge patient to home. - Resume previous diet. - Continue present medications. - Await pathology results. - Repeat colonoscopy for surveillance based on pathology results. Procedure Code(s): --- Professional --- 22054, PT, Colonoscopy, flexible; with removal of tumor(s), polyp(s), or other lesion(s) by snare technique 48332, 59, Colonoscopy, flexible; with biopsy, single or multiple Diagnosis Code(s): --- Professional --- Z12.11, Encounter for screening for malignant neoplasm of colon K64.0, First degree hemorrhoids K63.89, Other specified diseases of intestine D13.39, Benign neoplasm of other parts of small intestine CPT copyright 2017 [employer]. All rights reserved. The codes documented in this report are preliminary and upon starch dumper review may be revised to meet current compliance requirements. MD Ashley Nogueira MD 03/23/2021 11:23:29 AM This report has been signed electronically. Number of Addenda: 0 Note Initiated On: 03/23/2021 10:31 AM
--- NOTE | 2021-03-23 11:24 | OP.CCLET_ITS ---
03/23/2021 [facility] [place] [address] [place] [address] Re : Colonoscopy procedure for Lisandro Yun Dear Dr. [place] This procedure was performed on Tuesday, March 23, 2021. My impressions and recommendations are as follows: Impressions : - Hemorrhoids found on perianal exam. - Non-bleeding internal hemorrhoids. - Erythematous mucosa in the terminal ileum. Biopsied. - One ileal polyp in the ileocecal valve, removed with a hot snare. Resected and retrieved. - The examination was otherwise normal. Recommendations : - Discharge patient to home. - Resume previous diet. - Continue present medications. - Await pathology results. - Repeat colonoscopy for surveillance based on pathology results. My findings are described in the full procedure note, which is enclosed. If I can be of further assistance, please feel free to contact me at Doctor phone number(s): , Work: . Sincerely, MD Ashley Nogueira MD 03/23/2021 11:23:29 AM This report has been signed electronically.
[2021-03-23 11:25] VITALS: BP 142/84; BP 163/90; PULSE 88; RESP 16; TEMP 36.4; O2SAT 94
[2021-03-23 11:49] VITALS: BP 163/90
== END 2021-03-23 11:51 | disposition home or self-care (01) ==
LOC: EN 09:35 → AC 09:36
PROVIDERS: PCP Family Medicine; Referring Provider Surgery; Visit Provider Surgery
PROC: 0DJD8ZZ Inspection of Lower Intestinal Tract, Via Natural or Artificial Opening Endoscopic (ICD-10-PCS; CPT 45378; principal; 2021-03-23 10:55)
DX: Z12.11 Encounter for screening for malignant neoplasm of colon (principal); K29.50 Unspecified chronic gastritis without bleeding; K52.9 Noninfective gastroenteritis and colitis, unspecified; K31.89 Other diseases of stomach and duodenum; K64.0 First degree hemorrhoids; K21.00 Gastro-esophageal reflux disease with esophagitis, without bleeding; C61 Malignant neoplasm of prostate; Z79.899 Other long term (current) drug therapy; Z87.891 Personal history of nicotine dependence
CPT/HCPCS: 43239; 45380; 88305; 88313; 88342; J7120; J2405

== ENCOUNTER 2021-03-31 05:52 | Day surgery (SDC) | payer OTHER, SELFPAY ==
--- NOTE | 2021-03-25 09:18 | EKG12_ITS ---
Test Reason : PRE OP Blood Pressure : / mmHG Vent. Rate : 061 BPM Atrial Rate : 061 BPM P-R Int : 134 ms QRS Dur : 088 ms QT Int : 388 ms P-R-T Axes : 004 039 023 degrees QTc Int : 390 ms Normal sinus rhythm Normal ECG Confirmed by EMMA SANDHU, BRODIE ([id number]), scientific publications editor JERRI TUBBS ([id number]) on 03/25/2021 1:57:37 P M Referred By: Magno [place]ons Confirmed By:NIRANJAN CARTER MD
[2021-03-31] VITALS (13 sets, daily range): BP systolic 146–184; BP diastolic 76–104; PULSE 61–76; RESP 14–16; TEMP 35.9–36.6; O2SAT 92–100; BMI 23.8
[2021-03-31] MEDS: Lactated Ringers 1,000 ML 100 ML IV ×2 (06:43→06:44)
--- NOTE | 2021-03-31 07:30 | PROST_PTH ---
PATIENT: SRI MEADOWS LOC: [facility] [place] U#:[id number] AGE/SX: 66/M ROOM: RE03/31/[address]: Dr. Magno [place]ons MD : 1955 BED: DIS: 03/31/2021 SPEC #: [id number] RECD: 03/31/21 14:25 STATUS: ELAINA REMaría #: [id number] KIMO: 03/31/21 07:[address]: Magno [place] DEPT: SURGICAL PATHOLOGY RECD BY: Dom Jensen ENTERED: 04/01/21 08:09 SP TYPE: PROSTATE OTHR DR: Dr. Yg [place] MD Tissues: A - Lymph node of pelvis, NOS B - Prostate, NOS Procedures: Surgery Specimen Level V Surgery Specimen Level HEADER OPERATION: Laparoscopic robotic radical prostatectomy PRE-OP DIAGNOSIS: Malignant neoplasm of prostate, elevated PSA TISSUE SUBMITTED: A ? Pelvic lymph nodes, B - Prostate MICROSCOPIC DIAGNOSIS A. Pelvic lymph nodes, biopsy: Six out of six lymph nodes negative for metastatic carcinoma. B. Prostate, radical prostatectomy: Prostatic adenocarcinoma. See cancer summary in the comment section. SJ:omar 04/02/2021 COMMENT PROSTATE CANCER (RADICAL) SUMMARY: Procedure: Radical Prostatectomy Prostate Size: Weight: 52.2 gm Size: 4 cm transversely, 4 cm anterior-posteriorly and 3.5 cm craniocaudally Histologic Type: Acinar adenocarcinoma Histologic Grade: Grade group 1 (Levi score 3+3=6) Tumor Quantitation: Estimated percentage of prostate involved by tumor: ~5% Tumor predominantly involves left lobe, apical and mid portion and measures approximately 1.6 x 1.2 x 0.6 cm and focal minimal area of tumor is noted in the right lobe measuring 0.2 x 0.1 cm involving mid portion of the prostate. Extraprostatic Extension: Not identified Urinary Bladder Neck Invasion: Not identified Seminal Vesicle Invasion: Not identified Lymphvascular Invasion: Not identified Perineural Invasion: Present, focal Margins: Uninvolved by invasive carcinoma. Regional Lymph Nodes: Number of lymph nodes involved: 0 Number of lymph nodes examined: 6 Treatment Effect: No known presurgical therapy. Additional Pathologic Findings: - Focal high-grade prostatic intraepithelial neoplasia (HGPIN). - Focal chronic inflammation. - Benign prostatic hyperplasia, predominantly glandular type. - Calcified fibrous nodules x 2. PATHOLOGIC STAGE: pT2 pN0 pMx The above summary is in compliance with [employer] (CAP) Cancer Protocols Checklist and [place] [employer] Committee on Cancer (AJCC), Staging Manual, 8th Ed. Please make reference to previous specimen ([id number]) right prostate, apex, left prostate, apex and mid core biopsies with diagnosis of ?adenocarcinoma.? Case has been reviewed in consultation with Dr. Stover who concurs with the above diagnosis. IDC:AM MICROSCOPIC DESCRIPTION Slides are reviewed. GROSS DESCRIPTION A - Received in fixative is one container labeled with the patient's name and designated pelvic lymph node. The specimen consists of two pieces of adipose tissue measuring 3 x 1.5 x 0.3 cm and 2 x 2 x 0.5 cm. Focal fibrous areas are noted. No obvious lymph nodes are identified. The entire specimen is submitted in three cassettes. B - Received in fixative is one container labeled with the patient's name and designated prostate. The specimen consists of a radical prostatectomy specimen weighing 52.2 gm and measuring 4 cm transversely, 4 cm anterior-posteriorly and 3.5 cm craniocaudally. The right seminal vesicle measures 3.5 x 1.5 x 1.5 cm and the right vas deferens measures 3.5 cm in length and 0.5 cm in diameter. The left seminal vesicle measures 3.5 x 2 x 1 cm and the left vas deferens measures 2 cm in length and 0.5 cm in diameter. Two calcified nodules are also noted at the basal portion of the prostate measuring 0.3 and 0.5 cm in greatest dimension. The prostate is inked as follows: posterior surface - black, anterior surface ?yellow, right lateral surface - blue, left lateral surface - green. Bilateral seminal vesicles and vas deferens are inked as follows: posterior surface - black, anterior surface right seminal vesicle and vas deferens - blue, anterior surface left seminal vesicle and vas deferens - green. Sections do not reveal any mass lesions.??Food Editor sections are submitted in 18 cassettes as follows: 1 - calcified nodules after decalcification, 2 - right seminal vesicle, 3 - left seminal vesicle, 4??apical margin prostate, enface, 5 & 6 - basal margin prostate, enface, 7-10 - apical portion prostate, 11-14 - middle portion prostate, 15-18 - basal portion prostate. / ANAHI:omar 04/01/21 TC:0 CPT: 89416, 43847, 67938
[2021-03-31] MEDS: Cefazolin 2 GM in 0.9% Normal Saline 100 ML IV (07:32)
--- NOTE | 2021-03-31 07:40 | PCM.DC ---
Discharge Instructions Diet Discharge Diet: Light diet - advance as tolerated and Soft diet Activity Discharge Activity: May Not Drive (while taking narcotic pain medications.) May resume sexual activity in: 6-8 weeks Dressing / Incision Call your doctor if your incision/area has: Continuous Slow Oozing, Sudden Increased Bleeding, Increased Pain/ Swelling, Foul Smelling Discharge and Swelling at the incision site Call your doctor if you observe: Fever of 101 or Higher Cleanse incision/area with: Soap & Water Catheter: Victoria to leg bag and Victoria to large bag Drain: [place] Follow Up Care Please Follow Up With: Magno Clemons MD When: Call [phone] for an appointment Test Results: Test results from this visit will be discussed in further detail at your follow-up appointment, if applicable. Discharge Plan Admission Primary Reason for Your Visit: Radical Prostatectomy Attending Provider: Magno Clemons Primary Care Provider: Yg [place] Instructions Patient Instructions: Radical Prostatectomy Dc Discharge Orders/Prescriptions Prescriptions: New ciprofloxacin HCl [Cipro] 500 mg tablet 500 mg PO BID Qty: 20 RF: 0 docusate sodium [Colace] 100 mg capsule 100 mg PO BID Qty: 20 RF: 0 oxycodone-acetaminophen 5-325 mg tablet 1 tab PO Q6H PRN (Reason: pain) 7 Days Qty: 14 RF: 0 Continued pantoprazole 40 mg tablet,delayed release (DR/EC) 40 mg PO DAILY RF: 0 fluticasone propionate 50 mcg/actuation [place],Suspension 1 spray INTRANASAL DAILY PRN (Reason: Congestion) RF: 0 Other Ambulatory Orders: 12 Lead EKG (Routine) Timeframe: 1 Day Location: None Selected Ordered By: Dr. Ari Deluca Referrals / Follow Up: Magno [place]ons MD [STAFF PHYSICIAN] - Yg [place] MD [Primary Care Provider] - Disposition Disposition (needs filled in before D/C Order can be placed): Home, Self Care
--- NOTE | 2021-03-31 07:41 | PCM.HP.STD ---
HPI - General HPI Narrative SRI MEADOWS, is a 66 M who presents for radical prostatectomy for prostate cancer. PFSH Medical History Anxiety Broken leg Cancer DVT (deep venous thrombosis) Former smoker GERD (gastroesophageal reflux disease) History of edema History of stress test Leg cramps Prostate cancer Prostate disease Serous retinal detachment, left eye Home Medications pantoprazole 40 mg tablet,delayed release 40 mg PO DAILY 03/17/21 [History Last Taken 03/29/21] fluticasone propionate 1 spray INTRANASAL DAILY PRN 03/18/21 [History Last Taken Unknown] ciprofloxacin HCl [Cipro] 500 mg PO BID #20 tab 03/31/21 [Rx Last Taken Unknown] docusate sodium [Colace] 100 mg PO BID #20 cap 03/31/21 [Rx Last Taken Unknown] oxycodone-acetaminophen 1 tab PO Q6H PRN 7 Days #14 tab 03/31/21 [Rx Last Taken Unknown] Allergy/AdvReac Type Severity Reaction Status Date / Time No Known Allergies Allergy Verified 03/31/21 06:30 Family History Father Heart disease Surgical History Hx of colonoscopy Hx of tonsillectomy Social History Smoking Status: Former smoker alcohol intake: current alcohol intake frequency: holidays/special occasions only Vital Signs Vital Signs Vital Signs: 03/31/21 06:33 Temperature 97.4 F L Temperature Source Temporal Pulse Rate 70 Respiratory Rate 16 Respiratory Pattern Normal Blood Pressure 147/89 H Blood Pressure Mean 108 Blood Pressure Source Monitor Blood Pressure Position Semi-Fowlers Blood Pressure Location Left Arm Pulse Ox 99 Oxygen Delivery Method Room Air Weight Weight: 76.4 kg Body Mass Index (BMI) 23.8
[2021-03-31] MEDS: Bupivacaine Mpf 0.5% 30 ML VIAL (07:55)
--- NOTE | 2021-03-31 11:23 | OP.PCM_ITS ---
Report of Operation Date of Procedure: 03/31/21 Pre-Operative Diagnosis: Prostate cancer Post-Operative Diagnosis: Same Surgery/Procedure Performed:: Laparoscopic robotic assisted radical prostatectomy, bilateral pelvic lymph node dissection, suture suspension of the urethra Description of Surgical Findings:: Patient presented to the hospital for treatment of his prostate cancer with radical prostatectomy. In the preoperative setting we discussed the options of management for his prostate cancer including active surveillance, radiation treatments, radioactive seeds, and radical robotic prostatectomy. We discussed the side effects of surgery including the potential to lose erections. We discussed the potential to have bladder control problems with stress incontinence which can be temporary or permanent. We discussed the risk of the surgery including the risk of general anesthetic, risk of bleeding, risk of infection, and risk of formation of hernia either incisional hernia or inguinal hernia. After long discussion with the patient the preoperative setting and also reviewed this in the preop area patient signed the consent form and we proceeded with a radical prostatectomy. Patient was taken back to the operating room he was identified, time out procedure was performed and he was placed supine on the table he underwent general anesthesia with intubation. The abdomen was shaved prepped and draped in usual sterile fashion as well as the penis and testicles. A 16 Montenegrin catheter was placed into the bladder with clear return of urine. I then made an incision in the umbilicus and dissected down to the fascia advance a Veress needle into the peritoneal cavity and insufflated the peritoneal cavity with CO2 gas. I then placed a 12 mm trocar above the umbilicus. I then visualized the placement of the rest of the trochars, I placed a right arm robotic trocar, and air seal trocar, a suction port 5 mm trocar. And on the left side I placed 2 robotic arms. Once all the trochars were in placed the patient was put in steep Trendelenburg. And the robot was docked the arms were docked and then I placed the 0 degree camera through the robotic arm and also used a 30 degree camera during certain parts of the case. I used scissors in the right arm, prograsp in the third arm, and a bipolar in the second arm. Initial dissection was to free the sigmoid colon off the lateral wall this was done by meticulously dissecting off the peritoneum and the sigmoid colon off the left lateral wall. This then allowed the prograsp to retract the sigmoid colon out of the pelvis. I then went below the bladder and identified the vas deferens incised the peritoneum over the vas deferens and traced the vas deferens below the bladder to the prostate and identified the right and left vasa deferens. Below behind the vas deferens then the seminal vesicles were identified. I then dissected the seminal vesicle free using pinpoint electrocautery and then we identified the other seminal vesicle and then dissected this using pinpoint electrocautery I then elevated the vas deferens and several vesicles off the prostate and was able to sweep the Denonvilliers' fascia off the prostate posteriorly all the way up to the apex of the prostate. Working laterally I made sure I went as lateral as possible to sweep the Denonilliers' fascia off the posterior aspect of the prostate and worked my way back, I then transected the vas deferens and the left and right side the seminal vesicles were then dissected free. And then I pulled out of the pelvis. At this point the bladder was dropped creating the space of Retzius with the bladder on traction with the fourth arm. Using electrocautery I dissected in the anterior peritoneal fascia and then created the space of Retzius dissecting towards the prostate. The pelvic lymph node dissection was then performed both on the left and the right pelvic lymph nodes the nodes that were taken on the right side extended from the right iliac artery lateral pelvic sidewall up to the junction of the artery and the lymph nodes and down to the obturator nerve and then also below the ear machine operator nerve all the lymph nodes were removed during to remove those lymph nodes we used clips and electrocautery to control small blood vessels and also the control lymphatic. I then went to the left side and again did an extensive lymph node dissection starting of the left iliac artery extending the left iliac vein on the lateral sidewall down to the obturator nerve and the left side beyond the ear machine operator nerve down further behind it cleaning out all the lymphatic tissue all this tissue was sent off as a specimen we use clips and electrocautery during the dissection. At the end we cleaned out all the lymphatic tissue on the right pelvic wall and no lymphatic tissue in the left pelvic wall. The prostate was then cleaned of the fat over the prostate and the fourth arm was used to retract the bladder and place traction. I then identified the endopelvic fascia that was overlying the prostate on the right side I incised endopelvic fascia and wwept the levator muscles off the prostate all the way to the apex on the right side, I then worked my way anterior to the prostate then transected to the puboprostatic ligament and the underlying dorsal vein complex was not injured. I then went to the other side and identified the endopelvic fascia in the left side incised in a fashion the left side and swept the levator muscles off the prostate on the left side all the way up to the apex the puboprostatic ligament on the left side was then dissected and transected I then freed up the fascia overlying the dorsal vein complex. I then used the prograsp to encircled the dorsal vein complex with the prograsp and then switched over to the right and left needle ross carrier driver and suture ligated the dorsal vein complex above the prograsp. The prograsp was then placed back in the bladder and put back on traction I then identified the junction between the bladder and the prostate and dissected down between the bladder and the prostate untilI came across the catheter we then dissected posteriorly to the bladder and prostate to free the prostate and the bladder off each other and the muscles between the bladder and the prostate was then cauterized to free up the bladder. I then went on top of the prostate and identified the endopelvic fascia on top of the prostate this was incised all the way to the apex and then we swept the endopelvic fascia off the prostate laterally and then identified the plane between endopelvic fascia and the prosthetic pseudocapsule and swept the fascia laterally until reaching the course of the neurovascular bundles and then released the neurovascular bundles off the prostate laterally all the way back in a retrograde fashion back to the junction of the pedicles then the prostate was placed on traction with the fourth arm pulling the prostate laterally identified the pedicle to the prostate between the seminal vesicles and the and the neurovascular bundle and this was taken using sequential small hemolocks. After the pedicle was taken the I then dissected underneath the prostate sweeping the neurovascular bundle off the prostate we able to follow the nice smooth plane between the neurovascular bundle and the pseudocapsule all the way to the apex once this was identified we swept this up all the way up to the apex and there was perfect nerve sparing on the right side. Then went to the left side the prostate identified the endopelvic fascia over the left side of the prostate I incised the endopelvic fascia all the way to the apex and then swept this off laterally I then released the neurovascular bundles on the left side of the prostate sweeping him off the prostate laterally I then elevated the prostate up up with the prostate and traction identified the pedicle to the prostate on the left side and then the pedicles taken with sequential Hem-o-raghu clips I then was able to dissected the neurovascular bundle off the left p osterior aspect the prostate this was a perfect dissection all the way up on the left side following the pseudocapsule all the way up the left side until we reached the apex of the prostate. After the both the neurovascular bundles has been swept off the posterior to the prostate I then went above and transected the dorsal vein complex there was minimal to no bleeding but then dissected down to the urethra and circumfencial dissected around the urethra I then switched the right and left arm with the needle drivers and I suture-ligated the dorsal vein complex again just to ensure that there was no bleeding from the dorsal vein complex. I then transected through the urethra with scissors and the prostate was then freed and released off the prostate bed and put an Endo Catch bag. At this point the bladder neck was reconstructed and then an anastomosis was performed between the prostate and the bladder with a 3 oh V-Loc stitch in a running fashion starting from the bladder neck at the 6 o'clock position working to the 12 o'clock position with continuous stitches to complete a perfect anastomosis between the bladder and the prostate. I then placed a new catheter into the bladder, an 18 Montenegrin sokaogon tip catheter flushed the bladder and there was no leakage from the anastomosis I put 10 cc in the balloon and pulled it up pulled back gently. I then ensured that there was no bleeding from the dorsal vein complex no bleeding from the neurovascular bundles FloSeal was placed as necessary once hemostasis was ensured and adequate then I placed the bladder back in position in the pelvis the prostate was exchanged to the camera port I closed the air seal port with a 10 12 Rj Jones stitch. And the extracted the prostate through the umbilicus. The robot was undocked all the ports were removed under direct visualization then closed the extraction site with 0 Vicryl with a CT1 needle once the extraction site was closed. I then closed all the incision with subcuticular stitches with 4-0 Monocryl and then bandages were placed on the incisions catheter was flushed to make sure it was draining well there was no clots and it was crystal clear patient's anesthetic was reversed he was extubated and taken back to the PACU in stable condition all the needles and sponges and instruments were accounted for. Blood loss was minimal and the drain was a 18 Montenegrin Wilhelm catheter. No other surgical drain was left. I was present during the entire case. Surgeon: CHRISTINA Type of Anesthesia: General Drains: 20 FR WILHELM GRAVITY Admit VTE Documentation VTE Present on Admission: No VTE Mechan Device Prophylaxis: SCD's VTE Pharm Prophylaxis ordered?: No
[2021-03-31] MEDS: Lactated Ringers 1,000 ML 150 ML IV ×2 (12:13→15:25)
[2021-03-31] MEDS: Ketorolac 30 MG/ML Syringe IV (12:13)
--- NOTE | 2021-03-31 14:55 | SUR.PHASEII ---
pt's lion catheter is draining only very little. rn has notified dr. castro of this. he plans to come to pt's room and possibly irrigate lion shortly.
== END 2021-03-31 16:40 | disposition home or self-care (01) ==
LOC: SDC 05:52 → AC 05:53
PROVIDERS: PCP Family Medicine; Referring Provider Urology; Visit Provider Urology
PROC: 0VT04ZZ Resection of Prostate, Percutaneous Endoscopic Approach (ICD-10-PCS; CPT 55866; principal; 2021-03-31 07:10)
DX: C61 Malignant neoplasm of prostate (principal); F41.9 Anxiety disorder, unspecified; K21.9 Gastro-esophageal reflux disease without esophagitis; Z87.891 Personal history of nicotine dependence; Z86.718 Personal history of other venous thrombosis and embolism; Z79.899 Other long term (current) drug therapy
CPT/HCPCS: 38571; 51990; 55866; 88307; 88309; 93005; J7120; J2405

== ENCOUNTER → 2021-05-25 09:49 | Outpatient (CLI) | payer OTHER, SELFPAY ==
[2021-05-25 12:44] LABS: PSA,Total - Annual Screen 0.02 ng/mL (0.00-4.00)
== END ==
PROVIDERS: PCP Family Medicine; Referring Provider Urology; Visit Provider Urology
DX: Z48.816 Encounter for surgical aftercare following surgery on the genitourinary system (principal)
CPT/HCPCS: 36415; 84153; G0103

== ENCOUNTER 2021-06-29 07:20 | Outpatient (CLI) | payer OTHER, SELFPAY ==
--- NOTE | 2021-06-29 07:27 | US_ITS ---
STUDY: THYROID ULTRASOUND REASON FOR EXAM: Male, 66 years old. Thyroid nodule. TECHNIQUE: Ultrasound evaluation of the thyroid was performed with real-time and static rodriguez-scale imaging. COMPARISON: None. FINDINGS: RIGHT LOBE: The right lobe of the thyroid gland measures 4.4 cm x 1.4 cm x 1.5 cm. There is a homogeneous echotexture. There are no demonstrated solid, cystic or complex lesions. LEFT LOBE: The left lobe of the thyroid gland measures 4 cm x 1.2 cm x 1.0 cm. There is a homogeneous echotexture. There are no demonstrated solid, cystic or complex lesions. ISTHMUS: The isthmus measures 2 mm. The regional lymph nodes are normal. US/Thyroid IMPRESSION: Normal ultrasound examination of the thyroid. Electronically Signed: Estevan Castillo MD at 9:29 EST , Service support ,
--- NOTE | 2021-06-29 14:31 | CPS ---
Results faxed to Dr. Rojas's office for interpretation @[id number] with confirmation fax received.
== END 2021-06-29 23:59 | disposition short-term general hospital (02) ==
PROVIDERS: PCP Family Medicine; Referring Provider Family Medicine; Visit Provider Family Medicine
DX: R05.3 Chronic cough (principal)
CPT/HCPCS: 76536; 94060; 94726; 94729

== ENCOUNTER 2021-08-17 09:42 | Outpatient (CLI) | payer OTHER, SELFPAY ==
[2021-08-17 12:37] LABS: PSA,Total- Diagnostic < 0.01 ng/mL (0.0-4.0)
== END 2021-08-17 23:59 | disposition home or self-care (01) ==
LOC: MTLAB 09:44
PROVIDERS: PCP Family Medicine; Referring Provider Urology; Visit Provider Urology
DX: C61 Malignant neoplasm of prostate (principal)
CPT/HCPCS: 36415; 84153

== ENCOUNTER → 2022-02-21 | Outpatient (CLI) | payer OTHER, SELFPAY ==
[2022-02-21 13:34] LABS: PSA,Total- Diagnostic 0.01 ng/mL (0.0-4.0)
== END | disposition home or self-care (01) ==
PROVIDERS: PCP Family Medicine; Referring Provider Urology; Visit Provider Urology
DX: C61 Malignant neoplasm of prostate (principal)
CPT/HCPCS: 36415; 84153

== ENCOUNTER → 2022-03-24 | Outpatient (CLI) | payer OTHER, SELFPAY ==
[2022-04-01 10:08] LABS: Alternaria alternata <0.10 kU/L (Class 0); Bermuda Grass 0.17 kU/L (Class 0/I); Bluegrass, Kentucky 1.44 kU/L (Class III); Cat Hair/Dander, Standard <0.10 kU/L (Class 0); D farinae Mite <0.10 kU/L (Class 0); D pteronyssinus <0.10 kU/L (Class 0); Dog Epithelia <0.10 kU/L (Class 0); Elm, American White 0.21 kU/L (Class 0/I); Oak, White 0.12 kU/L (Class 0/I); Plantain, English 0.14 kU/L (Class 0/I); Ragweed, Short/Common 0.14 kU/L (Class 0/I)
[2022-04-01 14:56] LABS: Mouse Urine <0.10 kU/L (Class 0)
== END | disposition home or self-care (01) ==
LOC: MTLAB 09:24
PROVIDERS: PCP Family Medicine; Referring Provider Internal Medicine Pulmonary Disease; Visit Provider Internal Medicine Pulmonary Disease
DX: R05.9 Cough, unspecified (principal); J30.9 Allergic rhinitis, unspecified
CPT/HCPCS: 36415; 86003

== ENCOUNTER → 2022-05-23 | Outpatient (CLI) | payer OTHER, SELFPAY ==
--- NOTE | 2022-05-23 11:04 | RAD_ITS ---
INDICATION: COUGH EXAMINATION/TECHNIQUE: X-RAY - XR Chest 2 Views COMPARISON: Two-view chest x-ray from 01/28/2021 FINDINGS: LINES/DEVICES: None. LUNGS: No pulmonary edema or focal airspace consolidation. No sizable pleural effusion. No pneumothorax detected. MEDIASTINUM AND CARDIOVASCULAR STRUCTURES: Heart size within normal limits. Mediastinal contours unremarkable. BONES AND SOFT TISSUES: No acute findings. RAD/Chest PA and Lateral IMPRESSION: No radiographic evidence of acute cardiopulmonary disease. Electronically Signed: Fadi Reyez MD at 1:27 EST ,
== END | disposition home or self-care (01) ==
LOC: MTRAD 11:03
PROVIDERS: PCP Family Medicine; Referring Provider Internal Medicine Pulmonary Disease; Visit Provider Internal Medicine Pulmonary Disease
DX: R05.9 Cough, unspecified (principal)
CPT/HCPCS: 71046

== ENCOUNTER → 2022-07-26 | Outpatient (CLI) | payer OTHER, SELFPAY ==
[2022-07-26 17:31] LABS: Absolute Lymphocyte Count 1.44 X10^3/uL (0.83-4.51); Absolute Neutrophil Count 4.2 X10^3/uL (2.0-7.7); Basophil# 0.07 X10^3/uL; Eosinophil# 0.32 X10^3/uL; Eosinophils% 4.8 % (0-5); Hematocrit 42.4 % (40-54); Hemoglobin 13.5 g/dL (13.0-16.5); Lymphocyte # 1.44 X10^3/ul (0.83-4.51); Lymphocyte % 21.6 % (19-41); Mean Corp Hgb Conc 31.8 g/dL (32-36); Mean Corpuscular Hgb 28.4 pg (27.0-32.0); Mean Corpuscular Volume 89.3 fL (80-94); Mean Platelet Vol. 10.3 fl (6.2-12.0); Monocyte# 0.65 X10^3/uL; Monocyte% 9.7 % (0-10); NRBC Flagged by Analyzer 0 % (0-5); Neutrophil # 4.17 X10^3/uL (2.7-7.7); Neutrophil % 62.5 % (47-70); Platelet Count 274 K/mm3 (150-450); RBC Distribution Width CV 12.8 % (11.6-14.6); RBC Distribution Width SD 41.9 fl (35.1-43.9); Red Blood Count 4.75 M/mm3 (4.6-6.2); White Blood Count 6.7 K/mm3 (4.4-11.0)
[2022-07-26 18:08] LABS: ALB/GLOB Ratio 1.1 RATIO (0.9-2.4); AST(SGOT) 19 U/L (15-37); Alanine Aminotransfer ALT/SGPT 28 U/L (16-61); Albumin, Serum 3.5 g/dL (3.2-5.0); Alkaline Phosphatase 52 U/L (45-117); Anion Gap 6 (5-15); BUN 13 mg/dL (7-18); BUN/Creat Ratio 13.2 RATIO (10-20); Calcium,Total 8.7 mg/dL (8.5-10.1); Chloride 110 mmol/L (98-107); Cholesterol 148 mg/dL (200); Creatinine, Serum 0.99 mg/dL (0.70-1.30); EST Glomerular Filtration Rate 81 mL/min (>60); Est Glom Filt Rate - Afr Amer 98 mL/min (>60); Globulin 3.3 g/dL (2.2-4.2); Glucose 83 mg/dL (74-106); High Density Lipoprotein 54 mg/dL; Potassium 3.8 mmol/L (3.5-5.1); Protein, Total 6.8 g/dL (6.4-8.2); Sodium Level 142 mmol/L (136-145); Triglycerides 71 mg/dL; Very Low Density Lipoprotein 14 mg/dL (5-40)
== END | disposition home or self-care (01) ==
PROVIDERS: PCP Family Medicine; Referring Provider Family Medicine; Visit Provider Family Medicine
DX: K21.9 Gastro-esophageal reflux disease without esophagitis (principal); Z13.220 Encounter for screening for lipoid disorders
CPT/HCPCS: 36415; 80053; 80061; 85025

== ENCOUNTER → 2022-08-17 | Outpatient (CLI) | payer OTHER, SELFPAY ==
[2022-08-17 12:51] LABS: PSA,Total- Diagnostic 0.03 ng/mL (0.0-4.0)
== END | disposition home or self-care (01) ==
LOC: MTLAB 10:15
PROVIDERS: PCP Family Medicine; Referring Provider Urology; Visit Provider Urology
DX: C61 Malignant neoplasm of prostate (principal)
CPT/HCPCS: 36415; 84153

== ENCOUNTER → 2023-02-23 | Outpatient (CLI) | payer OTHER, SELFPAY ==
[2023-02-23 18:31] LABS: PSA,Total- Diagnostic 0.05 ng/mL (0.0-4.0)
== END | disposition home or self-care (01) ==
LOC: MTLAB 16:15
PROVIDERS: PCP Family Medicine; Visit Provider Registered Nurse
DX: C61 Malignant neoplasm of prostate (principal)
CPT/HCPCS: 36415; 84153

== ENCOUNTER → 2023-03-20 | Outpatient (CLI) | payer OTHER, SELFPAY ==
[2023-03-20 17:51] LABS: Vitamin B12 183 pg/mL (211-911)
[2023-03-20 17:59] LABS: Anion Gap 4 (5-15); BUN 15 mg/dL (7-18); BUN/Creat Ratio 14.7 RATIO (10-20); Calcium,Total 8.4 mg/dL (8.5-10.1); Chloride 110 mmol/L (98-107); Creatinine, Serum 1.02 mg/dL (0.70-1.30); EST Glomerular Filtration Rate 78 mL/min (>60); Est Glom Filt Rate - Afr Amer 94 mL/min (>60); Glucose 90 mg/dL (74-106); Magnesium 2.3 mg/dL (1.6-2.6); Potassium 3.8 mmol/L (3.5-5.1); Sodium Level 141 mmol/L (136-145)
== END | disposition home or self-care (01) ==
LOC: MFPLAB 16:16
PROVIDERS: Nurse Practitioner Family; PCP Family Medicine; Visit Provider Family Medicine
DX: R29.898 Other symptoms and signs involving the musculoskeletal system (principal)
CPT/HCPCS: 36415; 80048; 82306; 82607; 83735

== ENCOUNTER → 2023-05-26 | Outpatient (CLI) | payer OTHER, SELFPAY ==
--- NOTE | 2023-05-26 11:21 | RAD_ITS ---
STUDY: X-RAY LEFT FOOT, SECOND TOE REASON FOR EXAM: Male, 68 years old. Contusion distal 2nd left toe TECHNIQUE: 3 views of the left second toe was obtained. COMPARISON: None. FINDINGS: Normal visualized metatarsus. Normal metatarsophalangeal (M.T.P) joint. Normal interphalangeal joints. Normal interphalangeal joints. There is a fracture of the lateral tuft of the second distal phalanx. There is soft tissue swelling of the second toe. RAD/Toe(s) Min 2 Views IMPRESSION: Fracture of the lateral tuft of the second distal phalanx. Soft tissue swelling of the second toe. Electronically Signed: Jabari Sanchez MD at 15:49 EST ,
== END | disposition home or self-care (01) ==
LOC: MTRAD 11:21
PROVIDERS: PCP Family Medicine; Referring Provider Family Medicine; Visit Provider Family Medicine
DX: S90.122A Contusion of left lesser toe(s) without damage to nail, initial encounter (principal); X58.XXXA Exposure to other specified factors, initial encounter
CPT/HCPCS: 73660

== ENCOUNTER → 2023-07-12 | Outpatient (CLI) | payer OTHER, SELFPAY ==
[2023-07-12 17:33] LABS: Absolute Lymphocyte Count 1.17 X10^3/uL (0.83-4.51); Basophil# 0.08 X10^3/uL; Basophil% 1.1 % (0-1); Eosinophil# 0.33 X10^3/uL; Eosinophils% 4.6 % (0-5); Hematocrit 43.9 % (40-54); Hemoglobin 13.8 g/dL (13.0-16.5); Lymphocyte # 1.17 X10^3/ul (0.83-4.51); Lymphocyte % 16.2 % (19-41); Mean Corp Hgb Conc 31.4 g/dL (32-36); Mean Corpuscular Volume 89.2 fL (80-94); Mean Platelet Vol. 10.2 fl (6.2-12.0); Monocyte# 0.66 X10^3/uL; Monocyte% 9.1 % (0-10); NRBC Flagged by Analyzer 0 % (0-5); Neutrophil # 4.96 X10^3/uL (2.7-7.7); Neutrophil % 68.4 % (47-70); Platelet Count 309 K/mm3 (150-450); RBC Distribution Width CV 12.6 % (11.6-14.6); RBC Distribution Width SD 41.2 fl (35.1-43.9); Red Blood Count 4.92 M/mm3 (4.6-6.2); White Blood Count 7.2 K/mm3 (4.4-11.0)
[2023-07-12 17:55] LABS: Vitamin B12 250 pg/mL (211-911)
[2023-07-12 18:06] LABS: ALB/GLOB Ratio 1.2 RATIO (0.9-2.4); AST(SGOT) 16 U/L (15-37); Alanine Aminotransfer ALT/SGPT 19 U/L (16-61); Albumin, Serum 3.8 g/dL (3.2-5.0); Alkaline Phosphatase 57 U/L (45-117); Anion Gap 2 (5-15); BUN 16 mg/dL (7-18); Calcium,Total 8.7 mg/dL (8.5-10.1); Chloride 108 mmol/L (98-107); Creatinine, Serum 1.14 mg/dL (0.70-1.30); EST Glomerular Filtration Rate 68 mL/min (>60); Est Glom Filt Rate - Afr Amer 83 mL/min (>60); Globulin 3.3 g/dL (2.2-4.2); Glucose 84 mg/dL (74-106); Protein, Total 7.1 g/dL (6.4-8.2); Sodium Level 139 mmol/L (136-145)
== END | disposition home or self-care (01) ==
LOC: MFPLAB 16:16
PROVIDERS: PCP Family Medicine; Visit Provider Family Medicine
DX: K21.9 Gastro-esophageal reflux disease without esophagitis (principal); E53.8 Deficiency of other specified B group vitamins
CPT/HCPCS: 36415; 80053; 82607; 82746; 85025

== ENCOUNTER → 2023-11-13 | Outpatient (CLI) | payer OTHER, SELFPAY ==
[2023-11-13 17:58] LABS: PSA,Total - Annual Screen 0.09 ng/mL (0.00-4.00)
== END | disposition home or self-care (01) ==
PROVIDERS: PCP Family Medicine; Referring Provider Urology; Visit Provider Urology
DX: C61 Malignant neoplasm of prostate (principal)
CPT/HCPCS: 36415; 84153; G0103

== ENCOUNTER → 2024-02-20 | Outpatient (CLI) | payer OTHER, SELFPAY ==
[2024-02-20 10:02] LABS: Absolute Lymphocyte Count 0.96 X10^3/uL (0.83-4.51); Absolute Neutrophil Count 4.2 X10^3/uL (2.0-7.7); Basophil# 0.08 X10^3/uL; Basophil% 1.2 % (0-1); Eosinophil# 0.38 X10^3/uL; Eosinophils% 5.9 % (0-5); Hematocrit 43.2 % (40-54); Hemoglobin 13.6 g/dL (13.0-16.5); Lymphocyte # 0.96 X10^3/ul (0.83-4.51); Mean Corp Hgb Conc 31.5 g/dL (32-36); Mean Corpuscular Hgb 28.4 pg (27.0-32.0); Mean Corpuscular Volume 90.2 fL (80-94); Mean Platelet Vol. 9.8 fl (6.2-12.0); Monocyte# 0.72 X10^3/uL; Monocyte% 11.2 % (0-10); NRBC Flagged by Analyzer 0 % (0-5); Neutrophil # 4.24 X10^3/uL (2.7-7.7); Neutrophil % 66.2 % (47-70); Platelet Count 284 K/mm3 (150-450); RBC Distribution Width CV 12.8 % (11.6-14.6); RBC Distribution Width SD 42.3 fl (35.1-43.9); Red Blood Count 4.79 M/mm3 (4.6-6.2); White Blood Count 6.4 K/mm3 (4.4-11.0)
[2024-02-20 10:08] LABS: Vitamin B12 564 pg/mL (211-911)
[2024-02-20 10:15] LABS: AST(SGOT) 14 U/L (15-37); Alanine Aminotransfer ALT/SGPT 22 U/L (16-61); Albumin, Serum 3.4 g/dL (3.2-5.0); Alkaline Phosphatase 53 U/L (45-117); Anion Gap 6 (5-15); BUN 16 mg/dL (7-18); BUN/Creat Ratio 15.4 RATIO (10-20); Calcium,Total 8.7 mg/dL (8.5-10.1); Chloride 107 mmol/L (98-107); Creatinine, Serum 1.04 mg/dL (0.70-1.30); EST Glomerular Filtration Rate 76 mL/min (>60); Est Glom Filt Rate - Afr Amer 92 mL/min (>60); Globulin 3.4 g/dL (2.2-4.2); Glucose 98 mg/dL (74-106); Protein, Total 6.8 g/dL (6.4-8.2); Sodium Level 139 mmol/L (136-145)
== END | disposition home or self-care (01) ==
LOC: MFPLAB 08:11
PROVIDERS: PCP Family Medicine; Visit Provider Family Medicine
DX: E53.8 Deficiency of other specified B group vitamins (principal); K21.9 Gastro-esophageal reflux disease without esophagitis
CPT/HCPCS: 36415; 80053; 82607; 82746; 85025

== ENCOUNTER → 2024-05-17 | Outpatient (CLI) | payer OTHER, SELFPAY ==
[2024-05-17 15:53] LABS: PSA,Total- Diagnostic 0.11 ng/mL (0.0-4.0)
== END | disposition home or self-care (01) ==
LOC: MTLAB 11:54
PROVIDERS: PCP Family Medicine; Referring Provider Nurse Practitioner; Visit Provider Nurse Practitioner
DX: C61 Malignant neoplasm of prostate (principal)
CPT/HCPCS: 36415; 84153

== ENCOUNTER → 2024-11-14 | Outpatient (CLI) | payer OTHER, SELFPAY ==
[2024-11-14 16:15] LABS: PSA,Total- Diagnostic 0.14 ng/mL (0.00-4.00)
== END | disposition home or self-care (01) ==
PROVIDERS: PCP Family Medicine; Referring Provider Urology; Visit Provider Urology
DX: C61 Malignant neoplasm of prostate (principal)
CPT/HCPCS: 36415; 84153

== ENCOUNTER → 2025-05-16 | Outpatient (CLI) | payer OTHER, SELFPAY ==
--- OUTSIDE RECORDS SUMMARY | 2025-05-16 13:51 | XMS RPT_ITS | CCD ---
Author Organization [facility] Care Team Providers Care Ict Managers Name Role Phone Rigoberto SANDHU, Dr. Yg Sinha Primary Care Provider 1( [phone] Deonte SANDHU, Dr. Magno Thomas Attending Provider Deonte SANDHU, Dr. Magno Thomas Referring Provider Yg Franklin Primary Care Unavailable Yg Franklin Attending Unavailable [place], Sarah Attending Unavailable [place], Sarah Referring Unavailable Yg Franklin Primary Care Unavailable Magno Clemons Attending Unavailable Magno Clemons Referring Unavailable Yg Franklin Primary Care Unavailable Medications Current Medications Medication Drug Class(es) Dates Sig (Normalized) Sig (Original) acetaminophen 325 mg / oxyCODONE hydrochloride 5 mg oral tablet (10 sources) Opioid Agonist Start: 03-31-2021 take 1 tablet by mouth every six hours as needed for pain Oxycodone-Acetami nophen 5-325 mg tablet Active 1 {tbl} PO EVERY 6 HOURS as needed for pain 14 March 31, 2021 Start: 03-31-2021 take 1 tablet by alli th every six hours Oxycodone-Acetaminophen Active 1 TABLET PO EVERY 6 HOURS 14 March 31, 2021 ciprofloxacin 500 mg oral tablet (10 sources) Quinolone Antimicrobial Start: 03-31-2021 take 1 tablet by mouth twice daily Ciprofloxacin Hcl (Cipro) 500 mg tablet Active 500 mg PO TWICE A DAY March 31, 2021 12:00am docusate sodium 100 mg oral capsule (10 sources) Start: 03-31-2021 take 1 capsule by mouth twice daily Docusate Sodium (Colace) 100 mg capsule Active 100 mg PO TWICE A DAY March 31, 2021 12:00am fluticasone propionate 0.05 mg/actuat metered dose nasal spray (10 sources) Corticosteroid Start: 03-18-2021 Fluticasone Propionate 50 mcg/actuation [place],Suspension Active 1 NMA INTRANASAL DAILY as needed for Congestion March 18, 2021 12:00am Start: 03-18-2021 Fluticasone Pr opionate Active 1 SPRAY INTRANASAL DAILY March 17, 2021 11:00pm pantoprazole 40 mg delayed release oral tablet (10 sources) Proton Pump Inhibitor Start: 03-17-2021 take 1 tablet by mouth once daily Pantoprazole 40 mg tablet,delayed release (DR/EC) Active 40 mg PO DAILY March 17, 2021 12:00am Problems Active Problems Problem Classification Problem Date Documented Date Episodic/Chronic Cancer of prostate (11 sources) Malignant tumor of prostate; Translations: [Malignant neoplasm of prostate] Onset: 11-20-2024 03-17-2021 Chronic Esophageal disorders (10 sources) Gastroesophageal reflux disease; Translations: [Gastro-esophageal reflux disease without esophagitis] 03-18-2021 Chronic Comment on above: ON MED Other screening for suspected conditions (not mental disorders or infectious disease) (10 sources) Patient encounter status; Translations: [Encounter for screening for malignant neoplasm of colon] 03-17-2021 Episodic Past or Other Problems Problem Classification Problem Date Documented Da te Episodic/Chronic Nutritional deficiencies (1 source) Deficiency of other specified B group vitamins; Translations: [Deficiency of other specified B group vitamins] Onset: 03-18-2024 Episodic Results Test Name Value Interpretation Reference Range Facility PSA,Total- Diagnosticon 11-03 PSA, DIAGNOSTIC 0.14 ng/mL Normal 0.00-4.00 [facility] Comment on above: Result Comment: This test was performed using the [employer] tPSA method. Measured values of a patient??sample can vary depending on the testing procedure used. PSA values determined on patient samples by different testing procedures cannot be used interchangeably. If there is a change in PSA assays while monitoring therapy, sequential testing should be performed to confirm baseline values. Performed By: #### L 501.9940 #### [facility] [address] [place], [address] PSA,Total- Diagnosticon 05-05 PSA, DIAGNOSTIC 0.11 ng/mL Normal 0.0-4.0 [facility] Comment on above: Result Comment: This test was performed using the TPSA assay method for the [employer] chemistry system. Values obtained with different assay methods cannot be used interchangably. When changing PSA assays in the course of monitoring a patient, additional sequential testing should be carried out to confirm baseline values. Performed By: #### L 501.9940 #### [facility] [address] [place], [address] CBC W/Diff, Automatedon 02-03 Absolute Lymph 0.96 X10 3/uL Normal 0.83-4.51 [facility] Comment on above: Order Comment: [facility] Order Date: 02/20/24 Order Info: 0184- - CBCD Performed By: #### L 506.0250, L100.0100, L500.4050, L503.0105 #### [facility] [address] [place], [address] Absolute Neut 4.2 X10 3/uL Normal 2.0-7.7 [facility] Comment on above: Order Comment: PER P T-[facility] ORDER Order Date: 02/20/24 Order Info: 0184- - CBCD Performed By: #### L 506.0250, L100.0100, L500.4050, L503.0105 #### [facility] [address] [place], [address] Basophils/100 WBC (Bld) 1.2 % High 0-1 [facility] Comment on above: Order Comment: PER P T-ONLY [facility] ORDER Order Date: 02/20/24 Order Info: 0184- - CBCD Performed By: #### L 506.0250, L100.0100, L500.4050, L503.0105 #### [facility] [address] [place], [address] Eosinophils/100 WBC (Bld) 5.9 % High 0-5 [facility] Comment on above: Order Comment: PER P T-ONLY [facility] ORDER Order Date: 02/20/24 Order Info: 0184-1 - CBCD Performed By: #### L 506.0250, L100.0100, L500.4050, L503.0105 #### [facility] [address] [place], [address] Erythrocyte distribution width (RBC) [Ratio] 12.8 % Normal 11.6-14.6 [facility] Comment on above: Order Comment: PER P T-ONLY [facility] ORDER Order Date: 02/20/24 Order Info: 0184 - CBCD Performed By: #### L 506.0250, L100.0100, L500.4050, L503.0105 #### [facility] [address] [place], [address] Hematocrit (Bld) [Volume fraction] 43.2 % Normal 40-54 [facility] Comment on above: Order Comment: PER P T-ONLY [facility] ORDER Order Date: 02/20/24 Order Info: 0184- - CBCD Performed By: #### L 506.0250, L100.0100, L500.4050, L503.0105 #### [facility] [address] [place], [address] Hemoglobin (Bld) [Mass/Vol] 13.6 g/dL Normal 13.0-16.5 [facility] Comment on above: Order Comment: PER P T-ONLY [facility] ORDER Order Date: 02/20/24 Order Info: 0184- - CBCD Performed By: #### L 506.0250, L100.0100, L500.4050, L503.0105 #### [facility] [address] [place], [address] IG% 0.500 Normal 0.0-0.9 [facility] Comment on above: Order Comment: PER P T-ONLY [facility] ORDER Order Date: 02/20/24 Order Info: 0184- - CBCD Result Comment: IG% - Immature Granulocytes (promyelocytes, myelocytes and metamyelocytes) > 1% indicates that a LEFT SHIFT is Present. Performed By: #### L 506.0250, L100.0100, L500.4050, L503.0105 #### [facility] [address] [place], [address] Lymphocytes/100 WBC (Bld) 15.0 % Low 19-41 [facility] Comment on above: Order Comment: PER P T-ONLY [facility] ORDER Order Date: 02/20/24 Order Info: 0184-1 - CBCD Performed By: #### L 506.0250, L100.0100, L500.4050, L503.0105 #### [facility] [address] [place], [address] MCH (RBC) [Entitic mass] 28.4 pg Normal 27.0-32.0 [facility] Comment on above: Order Comment: PER P T-ONLY [facility] ORDER Order Date: 02/20/24 Order Info: 0184-1 - CBCD Performed By: #### L 506.0250, L100.0100, L500.4050, L503.0105 #### [facility] [address] [place], [address] MCHC (RBC) [Mass/Vol] 31.5 g/dL Low 32-36 [facility] Comment on above: Order Comment: PER P T-ONLY [facility] ORDER Order Date: 02/20/24 Order Info: 0184-1 - CBCD Performed By: #### L 506.0250, L100.0100, L500.4050, L503.0105 #### [facility] [address], [address] MCV (RBC) [Entitic vol] 90.2 fL Normal 80-94 [facility] Comment on above: Order Comment: PER P T-ONLY [facility] ORDER Order Date: 02/20/24 Order Info: 0184-1 - CBCD Performed By: #### L 506.0250, L100.0100, L500.4050, L503.0105 #### [facility] [address] [place], [address] Monocytes/100 WBC (Bld) 11.2 % High 0-10 [facility] Comment on above: Order Comment: PER P T-ONLY [facility] ORDER Order Date: 02/20/24 Order Info: 0184-1 - CBCD Performed By: #### L 506.0250, L100.0100, L500.4050, L503.0105 #### [facility] [address] [place], [address] Neutrophils/100 WBC (Bld) 66.2 % Normal 47-70 [facility] Comment on above: Order Comment: PER P T-ONLY [facility] ORDER Order Date: 02/20/24 Order Info: 0184- - CBCD Performed By: #### L 506.0250, L100.0100, L500.4050, L503.0105 #### [facility] [address] [place], [address] Nucleated RBC (Bld) [#/Vol] 0 10*3/uL Normal 0-5 [facility] Comment on above: Order Comment: PER P T-ONLY [facility] ORDER Order Date: 02/20/24 Order Info: 0184-1 - CBCD Performed By: #### L 506.0250, L100.0100, L500.4050, L503.0105 #### [facility] [address] [place], [address] Platelet mean volume (Bld) [Entitic vol] 9.8 fL Normal 6.2-12.0 [facility] Comment on above: Order Comment: [facility] Order Date: 02/20/24 Order Info: 0184-1 - CBCD Performed By: #### L 506.0250, L100.0100, L500.4050, L503.0105 #### [facility] [address] [place], [address] Platelets (Bld) [#/Vol] 284 10*3/uL Normal 150-450 [facility] Comment on above: Order Comment: [facility] Order Date: 02/20/24 Order Info: 0184- - CBCD Performed By: #### L 506.0250, L100.0100, L500.4050, L503.0105 #### [facility] [address] [place], [address] RBC (Bld) [#/Vol] 4.79 10*6/uL Normal 4.6-6.2 [facility] Comment on above: Order Comment: PER P T[facility] Order Date: 02/20/24 Order Info: 0184- - CBCD Performed By: #### L 506.0250, L100.0100, L500.4050, L503.0105 #### [facility] [address] [place], [address] RDW SD 42.3 fl Normal 35.1-43.9 [facility] Comment on above: Order Comment: PER P T[facility] ORDER Order Date: 02/20/24 Order Info: 0184- - CBCD Performed By: #### L 506.0250, L100.0100, L500.4050, L503.0105 #### [facility] [address] [place], [address] WBC (Bld) [#/Vol] 6.4 10*3/uL Normal 4.4-11.0 [facility] Comment on above: Order Comment: PER P T-ONLY [facility] ORDER Order Date: 02/20/24 Order Info: 0184- - CBCD Performed By: #### L 506.0250, L100.0100, L500.4050, L503.0105 #### [facility] [address] [place], [address] Comprehensive Metabolic Prof ilon 02-20-2024 Albumin [Mass/Vol] 3.4 g/dL Normal 3.2-5.0 [facility] Comment on above: Order Comment: PER P T-ONLY [facility] ORDER Order Date: 02/20/24 Order Info: 0786-1 - CMP Order Info: 2288 - FOLS UNK N Performed By: #### L 506.0250, L100.0100, L500.4050, L503.0105 #### [facility] [address] [place], [address] Albumin/Globulin [Mass ratio] 1.0 {ratio} Normal 0.9-2.4 [facility] Comment on above: Order Comment: PER P T-ONLY [facility] ORDER Order Date: 02/20/24 Order Info: 0786 - CMP Order Info: 22809-10 - FOLS UNK N Performed By: #### L 506.0250, L100.0100, L500.4050, L503.0105 #### [facility] [address] [place], [address] ALK P 53 U/L Normal 45-117 [facility] Comment on above: Order Comment: [facility] Order Date: 02/20/24 Order Info: 0786-1 - CMP Order Info: 22809-10 - FOLS UNK N Performed By: #### L 506.0250, L100.0100, L500.4050, L503.0105 #### [facility] [address] [place], [address] ALT [Catalytic activity/Vol] 22 U/L Normal 16-61 [facility] Comment on above: Order Comment: PER P T-ONLY [facility] ORDER Order Date: 02/20/24 Order Info: 0786-1 - CMP Order Info: 2288 - FOLS UNK N Performed By: #### L 506.0250, L100.0100, L500.4050, L503.0105 #### [facility] [address] [place], [address] AST [Catalytic activity/Vol] 14 U/L Low 15-37 [facility] Comment on above: Order Comment: PER P T-ONLY [facility] ORDER Order Date: 02/20/24 Order Info: 0786- - CMP Order Info: 22809-10 - FOLS UNK N Performed By: #### L 506.0250, L100.0100, L500.4050, L503.0105 #### [facility] [address] [place], [address] Bilirubin [Mass/Vol] 0.70 mg/dL Normal 0.20-1.00 [facility] Comment on above: Order Comment: PER P T-ONLY [facility] ORDER Order Date: 02/20/24 Order Info: 07 - CMP Order Info: 2284-01 - FOLS UNK N Result Comment: For patients on eltrombopag therapy, use of Dimension [place] TBIL is not recommended. Performed By: #### L 506.0250, L100.0100, L500.4050, L503.0105 #### [facility] [address] [place], [address] BUN/CRE 15.4 RATIO Normal 10-20 [facility] Comment on above: Order Comment: PER P T-ONLY [facility] ORDER Order Date: 02/20/24 Order Info: 0786- - CMP Order Info: 2288 - FOLS UNK N Performed By: #### L 506.0250, L100.0100, L500.4050, L503.0105 #### [facility] [address] [place], [address] CA,Total 8.7 mg/dL Normal 8.5-10.1 [facility] Comment on above: Order Comment: PER P T-ONLY [facility] ORDER Order Date: 02/20/24 Order Info: 0786- - CMP Order Info: 2284-8 - FOLS UNK N Performed By: #### L 506.0250, L100.0100, L500.4050, L503.0105 #### [facility] [address] [place], [address] Chloride [Moles/Vol] 107 mmol/L Normal 98-107 [facility] Comment on above: Order Comment: [facility] Order Date: 02/20/24 Order Info: 0786- - CMP Order Info: 2284-01 FOLS UNK N Performed By: #### L 506.0250, L100.0100, L500.4050, L503.0105 #### [facility] [address] [place], [address] CO2 [Moles/Vol] 26.0 mmol/L Normal 21.0-32.0 [facility] Comment on above: Order Comment: [facility] Order Date: 02/20/24 Order Info: 0786-1 - CMP Order Info: 2284-01 - FOLS UNK N Performed By: #### L 506.0250, L100.0100, L500.4050, L503.0105 #### [facility] [address] [place], [address] Creatinine [Mass/Vol] 1.04 mg/dL Normal 0.70-1.30 [facility] Comment on above: Order Comment: PER P T-ONLY [facility] ORDER Order Date: 02/20/24 Order Info: 0786-1 - CMP Order Info: 2284-01 - FOLS UNK N Result Comment: The validity of the calculated GFR GFRAA in patients over 70 years has not been determined. Clinical correlation is essential. Performed By: #### L 506.0250, L100.0100, L500.4050, L503.0105 #### [facility] [address] [place], [address] EST GFR - AA 92 mL/min Normal >60 [facility] Comment on above: Order Comment: PER P T-ONLY [facility] ORDER Order Date: 02/20/24 Order Info: 0786 - CMP Order Info: 2284-01 - FOLS UNK N Result Comment: Afri can [place] GFR Calc Performed By: #### L 506.0250, L100.0100, L500.4050, L503.0105 #### [facility] [address] [place], [address] GAP 6 Normal 5-15 [facility] Comment on above: Order Comment: PER P T-ONLY [facility] ORDER Order Date: 02/20/24 Order Info: 07 - CMP Order Info: 2284-01 - FOLS UNK N Performed By: #### L 506.0250, L100.0100, L500.4050, L503.0105 #### [facility] [address] [place], [address] GFR/1.73 sq M.predicted among non-blacks MDRD (S/P/Bld) [Vol rate/Area] 76 mL/min/{1.73_m2} Normal >60 [facility] Comment on above: Order Comment: PER P T-ONLY [facility] ORDER Order Date: 02/20/24 Order Info: 0786 - CMP Order Info: 2284-01 - FOLS UNK N Result Comment: Non- GFR Calc Performed By: #### L 506.0250, L100.0100, L500.4050, L503.0105 #### [facility] [address] [place], [address] Globulin (S) [Mass/Vol] 3.4 g/dL Normal 2.2-4.2 [facility] Comment on above: Order Comment: PER P T-ONLY [facility] ORDER Order Date: 02/20/24 Order Info: 0786- - CMP Order Info: 2284-01 - FOLS UNK N Performed By: #### L 506.0250, L100.0100, L500.4050, L503.0105 #### [facility] [address] [place], [address] Glucose [Mass/Vol] 98 mg/dL Normal 74-106 [facility] Comment on above: Order Comment: PER P T-ONLY [facility] ORDER Order Date: 02/20/24 Order Info: 0786- - CMP Order Info: 2288 - FOLS UNK N Performed By: #### L 506.0250, L100.0100, L500.4050, L503.0105 #### [facility] [address] [place], [address] Potassium [Moles/Vol] 4.0 mmol/L Normal 3.5-5.1 [facility] Comment on above: Order Comment: PER P T-ONLY [facility] ORDER Order Date: 02/20/24 Order Info: 07 - CMP Order Info: 2288 - FOLS UNK N Performed By: #### L 506.0250, L100.0100, L500.4050, L503.0105 #### [facility] [address] [place], [address] Sodium [Moles/Vol] 139 mmol/L Normal 136-145 [facility] Comment on above: Order Comment: PER P T-ONLY [facility] ORDER Order Date: 02/20/24 Order Info: 0786- - CMP Order Info: 2288 - FOLS UNK N Performed By: #### L 506.0250, L100.0100, L500.4050, L503.0105 #### [facility] [address] [place], [address] T PROT 6.8 g/dL Normal 6.4-8.2 [facility] Comment on above: Order Comment: PER P T-ONLY [facility] ORDER Order Date: 02/20/24 Order Info: 0786- - CMP Order Info: 2288 - FOLS UNK N Performed By: #### L 506.0250, L100.0100, L500.4050, L503.0105 #### [facility] [address] [place], [place], [address] Urea nitrogen [Mass/Vol] 16 mg/dL Normal 7-18 [facility] Comment on above: Order Comment: PER P T-ONLY [facility] ORDER Order Date: 02/20/24 Order Info: 0786-1 - CMP Order Info: 2284-8 - FOLS UNK N Performed By: #### L 506.0250, L100.0100, L500.4050, L503.0105 #### [facility] [address] [place], [place], [address] Folates, (Folic Acid)on 02-03 FOLATES 13.40 ng/mL Normal 3.1-55.4 [facility] Comment on above: Order Comment: [facility] Order Date: 02/20/24 Order Info: 0786-1 - CMP Order Info: 2284-8 - FOLS UNK N Performed By: #### L 506.0250, L100.0100, L500.4050, L503.0105 #### [facility] [address] [place], [place], [address] Vitamin B12on 02-20-2024 Cobalamin (Vitamin B12) [Mass/Vol] 564 pg/mL Normal 211-911 [facility] Comment on above: Order Comment: PER P T-ONLY [facility] ORDER Order Date: 02/20/24 Order Info: 2132-9 - B12 Performed By: #### L 506.0250, L100.0100, L500.4050, L503.0105 #### [facility] [address] [place], [address] Absolute lymphocyte countOrd ered By: Yg Franklin on 07-12-2023 Lymphocytes Auto (Unsp spec) [#/Vol] 1.17 10*3/uL 0.83-4.51 [facility] Automated lymphocyte count a s percentage of total leukocytesOrdered By: Yg Franklin on 07-12-2023 Lymphocytes/100 WBC Auto (Unsp spec) 16.2 % 19-41 [facility] Basophil percentageOrdered B y: Yg Franklin on 07-12-2023 Basophils/100 WBC (Bld) 1.1 % 0-1 [facility] Bilirubin [Mass/Vol] 0.50 mg/dL 0.20-1.00 [facility] Comment on above: For patients on eltr ombopag therapy, use of Dimension [place] TBIL is not recommended. Chloride [Moles/Vol] 108 mmol/L 98-107 [facility] Eosinophils/100 WBC (Bld) 4.6 % 0-5 [facility] Glucose [Mass/Vol] 84 mg/dL 74-106 [facility] Hemoglobin (Bld) [Mass/Vol] 13.8 g/dL 13.0-16.5 [facility] Monocytes/100 WBC (Bld) 9.1 % 0-10 [facility] Neutrophils (Bld) [#/Vol] 5.0 10*3/uL 2.0-7.7 [facility] Neutrophils/100 WBC (Bld) 68.4 % 47-70 [facility] Potassium [Moles/Vol] 4.0 mmol/L 3.5-5.1 [facility] Protein [Mass/Vol] 7.1 g/dL 6.4-8.2 [facility] Sodium [Moles/Vol] 139 mmol/L 136-145 [facility] WBC (Bld) [#/Vol] 7.2 10*3/uL 4.4-11.0 [facility] Determination of erythrocyte mean corpuscular volume (MCV)Ordered By: Yg Franklin on 07-12-2023 MCV (RBC) [Entitic vol] 89.2 fL 80-94 [facility] Erythrocyte distribution wid th ratioOrdered By: Yg Franklin on 07-12-2023 Erythrocyte distribution width (RBC) [Ratio] 12.6 % 11.6-14.6 [facility] Erythrocyte distribution wid th standard deviationOrdered By: Yg Franklin on 07-12-2023 Erythrocyte distribution width (RBC) [Entitic vol] 41.2 fL 35.1-43.9 [facility] Hematocrit Auto (Bld) [Volum e fraction]Ordered By: Yg Franklin on 07-12-2023 Hematocrit (Bld) [Volume fraction] 43.9 % 40-54 [facility] Immature granulocytes/100 WB C Auto (Bld)Ordered By: Yg Franklin on 07-12-2023 Immature granulocytes/100 WBC (Bld) 0.600 % 0.0-0.9 [facility] Comment on above: IG% - Immature Granu locytes (promyelocytes, myelocytes and metamyelocytes) > 1% indicates that a LEFT SHIFT is Present. Laboratory - Chemistry and C hemistry - challengeOrdered By: Yg Franklin on 07-12-2023 Albumin/Globulin [Mass ratio] 1.2 {ratio} 0.9-2.4 [facility] ALP [Catalytic activity/Vol] 57 U/L 45-117 [facility] ALT [Catalytic activity/Vol] 19 U/L 16-61 [facility] CO2 [Moles/Vol] 29.0 mmol/L 21.0-32.0 [facility] Cobalamin (Vitamin B12) [Mass/Vol] 250 pg/mL 211-911 [facility] Globulin (S) [Mass/Vol] 3.3 g/dL 2.2-4.2 [facility] Urea nitrogen/Creatinine [Mass ratio] 14.0 mg/mg 10-20 [facility] Laboratory - Hematology and Cell countsOrdered By: Yg Franklin on 07-12-2023 MCH (RBC) [Entitic mass] 28.0 pg 27.0-32.0 [facility] MCHC (RBC) [Mass/Vol] 31.4 g/dL 32-36 [facility] Nucleated RBC/100 WBC (Bld) [Ratio] 0 % 0-5 [facility] Platelet mean volume (Bld) [Entitic vol] 10.2 fL 6.2-12.0 [facility] Platelets (Bld) [#/Vol] 309 10*3/uL 150-450 [facility] No Panel InformationOrdered By: Yg Franklin on 07-12-2023 Estimated GFR (MDRD) Amer 83 mL/min >60 [facility] Comment on above: GFR Calc Estimated GFR (MDRD) Non-Af Amer 68 mL/min >60 [facility] Comment on above: Non- GFR Calc Folate 15.00 ng/mL 3.1-55.4 [facility] Comment on above: Slight Hemolysis, Re sult may be falsely increased. RBC Auto (Bld) [#/Vol]Ordere d By: Yg Franklin on 07-12-2023 RBC (Bld) [#/Vol] 4.92 10*6/uL 4.6-6.2 [facility] Serum or plasma calcium chris urement (mass/volume)Ordered By: Yg Franklin on 07-12-2023 Calcium [Mass/Vol] 8.7 mg/dL 8.5-10.1 [facility] Serum or plasma creatinine m easurement (mass/volume)Ordered By: Yg Franklin on 07-12-2023 Creatinine [Mass/Vol] 1.14 mg/dL 0.70-1.30 [facility] [facility] Comment on above: The validity of the calculated GFR & GFRAA in patients over 70 years has not been determined. Clinical correlation is essential. Serum or plasma urea nitroge n measurement (mass/volume)Ordered By: Yg Franklin on 07-12-2023 Urea nitrogen [Mass/Vol] 16 mg/dL 7-18 [facility] Thin prep Papanicolaou smear with manual screeningOrdered By: Yg Franklin on 07-12-2023 Thin prep Papanicolaou smear with manual screening 3.8 g/dL 3.2-5.0 [facility] Thin prep Papanicolaou smear with manual screening 16 U/L 15-37 [facility] Thin prep Papanicolaou smear with manual screening 2 5-15 [facility] Basophil percentageOrdered B y: Martine Daniel on 03-20-2023 Chloride [Moles/Vol] 110 mmol/L 98-107 [facility] Glucose [Mass/Vol] 90 mg/dL 74-106 [facility] Potassium [Moles/Vol] 3.8 mmol/L 3.5-5.1 [facility] Sodium [Moles/Vol] 141 mmol/L 136-145 [facility] Laboratory - Chemistry and C hemistry - challengeOrdered By: Martine Danile on 03-20-2023 CO2 [Moles/Vol] 27.0 mmol/L 21.0-32.0 [facility] Cobalamin (Vitamin B12) [Mass/Vol] 183 pg/mL 211-911 [facility] Magnesium [Mass/Vol] 2.3 mg/dL 1.6-2.6 [facility] Urea nitrogen/Creatinine [Mass ratio] 14.7 mg/mg 10- [facility] No Panel InformationOrdered By: Martine Daniel on 03-20-2023 Estimated GFR (MDRD) Amer 94 mL/min >60 [facility] Comment on above: GFR Calc Estimated GFR (MDRD) Non-Af Amer 78 mL/min >60 [facility] Comment on above: Non- GFR Calc Vitamin D 25-Hydroxy 46.0 ng/mL [facility] Comment on above: Vitamin D 25(OH) Sta tus Range Deficiency <20 ng/mL (50nmol/L) Insufficiency 20 - 30 ng/mL (50 - 75 nmol/L) Sufficiency 30 - 100 ng/mL (75 - 250 nmol/L) Toxicity >100 ng/mL (>250 nmol/L) Serum or plasma calcium chris urement (mass/volume)Ordered By: Martine Daniel on 03-20-2023 Calcium [Mass/Vol] 8.4 mg/dL 8.5-10.1 [facility] Serum or plasma creatinine m easurement (mass/volume)Ordered By: Martine Daniel on 03-20-2023 Creatinine [Mass/Vol] 1.02 mg/dL 0.70-1.30 [facility] Comment on above: The validity of the calculated GFR & GFRAA in patients over 70 years has not been determined. Clinical correlation is essential. Serum or plasma urea nitroge n measurement (mass/volume)Ordered By: Martine Daniel on 03-20-2023 Urea nitrogen [Mass/Vol] 15 mg/dL - [facility] Thin prep Papanicolaou smear with manual screeningOrdered By: Martine Daniel on 03-20-2023 Thin prep Papanicolaou smear with manual screening 4 5-15 [facility] No Panel InformationOrdered By: ANNEMARIE Cool on 02-23-2023 Prostate Specific Antigen Total 0.05 ng/mL 0.0-4.0 [facility] Comment on above: This test was perfor med using the TPSA assay method [facility]. Values obtained with differentassay methods cannot be used interchangably.When changing PSA assays in the course of monitoring apatient, additional sequential testing should be carriedout to confirm baseline values. No Panel InformationOrdered By: Dr. Clemons on 08-17-2022 Prostate Specific Antigen Total 0.03 ng/mL 0.0-4.0 [facility] Comment on above: This test was perfor med using the TPSA assay method for the[facility] chemistry system. Values obtained with differentassay methods cannot be used interchangably.When changing PSA assays in the course of monitoring apatient, additional sequential testing should be carriedout to confirm baseline values. Absolute lymphocyte countOrd ered By: Dr. Franklin on 07-26-2022 Lymphocytes Auto (Unsp spec) [#/Vol] 1.44 10*3/uL 0.83-4.51 [facility] Basophil percentageOrdered B y: Dr. Franklin on 07-26-2022 Basophils/100 WBC (Bld) 1.0 % 0-1 [facility] Bilirubin [Mass/Vol] 0.50 mg/dL 0.20-1.00 [facility] Comment on above: For patients on eltr ombopag therapy, use of Dimension [place] TBIL is not recommended. Chloride [Moles/Vol] 110 mmol/L 98-107 [facility] Cholesterol [Mass/Vol] 148 mg/dL <200 [facility] Comment on above: <200 mg/dL Desirable 200-240 mg/dL Borderline >240 mg/dL High Risk Eosinophils/100 WBC (Bld) 4.8 % 0-5 [facility] Glucose [Mass/Vol] 83 mg/dL 74-106 [facility] Neutrophils (Bld) [#/Vol] 4.2 10*3/uL 2.0-7.7 [facility] Neutrophils/100 WBC (Bld) 62.5 % 47-70 [facility] Potassium [Moles/Vol] 3.8 mmol/L 3.5-5.1 [facility] Protein [Mass/Vol] 6.8 g/dL 6.4-8.2 [facility] Sodium [Moles/Vol] 142 mmol/L 136-145 [facility] Triglyceride [Mass/Vol] 71 mg/dL <199 [facility] Comment on above: The drugs N-Acetylcy steine and Metamizole may falsely depress this assay.Serum Triglycerides Reference Interval Normal <150 mg/dL Borderline high 150 - 199 mg/dL High 200 - 499 mg/dL Very High > or = 500 mg/dL WBC (Bld) [#/Vol] 6.7 10*3/uL 4.4-11.0 [facility] Blood erythrocytes count (nu mber/volume)Ordered By: Dr. Franklin on 07-26-2022 RBC (Bld) [#/Vol] 4.75 10*6/uL 4.6-6.2 [facility] Blood hemoglobin measurement (mass/volume)Ordered By: Dr. Franklin on 07-26-2022 Hemoglobin (Bld) [Mass/Vol] 13.5 g/dL 13.0-16.5 [facility] Blood lymphocytes/100 leukoc ytesOrdered By: Dr. Franklin on 07-26-2022 Lymphocytes/100 WBC (Bld) 21.6 % 19-41 [facility] Blood monocytes/100 leukocyt esOrdered By: Dr. Franklin on 07-26-2022 Monocytes/100 WBC (Bld) 9.7 % 0-10 [facility] Blood platelet mean volumeOr dered By: Dr. Franklin on 07-26-2022 Platelet mean volume (Bld) [Entitic vol] 10.3 fL 6.2-12.0 [facility] Determination of erythrocyte mean corpuscular volume (MCV)Ordered By: Dr. Franklin on 07-26-2022 MCV (RBC) [Entitic vol] 89.3 fL 80-94 [facility] Hematocrit Auto (Bld) [Volum e fraction]Ordered By: Dr. Franklin on 07-26-2022 Hematocrit (Bld) [Volume fraction] 42.4 % 40-54 [facility] Laboratory - Chemistry and C hemistry - challengeOrdered By: Dr. Franklin on 07-26-2022 ALP [Catalytic activity/Vol] 52 U/L 45-117 [facility] ALT [Catalytic activity/Vol] 28 U/L 16-61 [facility] CO2 [Moles/Vol] 26.0 mmol/L 21.0-32.0 [facility] Globulin (S) [Mass/Vol] 3.3 g/dL 2.2-4.2 [facility] Urea nitrogen/Creatinine [Mass ratio] 13.2 mg/mg 10-20 [facility] Laboratory - Hematology and Cell countsOrdered By: Dr. Franklin on 07-26-2022 Erythrocyte distribution width (RBC) [Entitic vol] 41.9 fL 35.1-43.9 [facility] Erythrocyte distribution width (RBC) [Ratio] 12.8 % 11.6-14.6 [facility] Immature granulocytes/100 WBC (Bld) 0.400 % 0.0-0.9 [facility] Comment on above: IG% - Immature Granu locytes (promyelocytes, myelocytes and metamyelocytes) > 1% indicates that a LEFT SHIFT is Present. MCH (RBC) [Entitic mass] 28.4 pg 27.0-32.0 [facility] Nucleated RBC/100 WBC (Bld) [Ratio] 0 % 0-5 [facility] MCHC Auto (RBC) [Mass/Vol]Or dered By: Dr. Franklin on 07-26-2022 MCHC (RBC) [Mass/Vol] 31.8 g/dL 32-36 [facility] No Panel InformationOrdered By: Dr. Franklin on 07-26-2022 Estimated GFR (MDRD) Amer 98 mL/min >60 [facility] Comment on above: GFR Calc Estimated GFR (MDRD) Non-Af Amer 81 mL/min >60 [facility] Comment on above: Non- GFR Calc Platelets bldOrdered By: Dr. Franklin on 07-26-2022 Platelets (Bld) [#/Vol] 274 10*3/uL 150-450 [facility] Serum or plasma albumin chris urement (mass/volume)Ordered By: Dr. Franklin on 07-26-2022 Albumin [Mass/Vol] 3.5 g/dL 3.2-5.0 [facility] Serum or plasma albumin/glob ulin mass ratioOrdered By: Dr. Franklin on 07-26-2022 Albumin/Globulin [Mass ratio] 1.1 {ratio} 0.9-2.4 [facility] Serum or plasma calcium chris urement (mass/volume)Ordered By: Dr. Franklin on 07-26-2022 Calcium [Mass/Vol] 8.7 mg/dL 8.5-10.1 [facility] Serum or plasma cholesterol in HDL measurement (mass/volume)Ordered By: Dr. Franklin on 07-26-2022 Cholesterol in HDL [Mass/Vol] 54 mg/dL >40 [facility] Comment on above: The drugs N-Acetylcy steine and Metamizole may falsely depress this assay. Reference Range HDL <40 mg/dL Low HDL Cholesterol HDL >or= 60 mg/dL High HDL Cholesterol Serum or plasma cholesterol in VLDL measurement (mass/volume)Ordered By: Dr. Franklin on 07-26-2022 Cholesterol in VLDL [Mass/Vol] 14 mg/dL 5-40 [facility] Serum or plasma creatinine m easurement (mass/volume)Ordered By: Dr. Franklin on 07-26-2022 Creatinine [Mass/Vol] 0.99 mg/dL 0.70-1.30 [facility] Comment on above: The validity of the calculated GFR & GFRAA in patients over 70 years has not been determined. Clinical correlation is essential. Serum or plasma low density lipoprotein (LDL) cholesterol measurement (mass/volume)Ordered By: Dr. Franklin on 07-26-2022 Cholesterol in LDL [Mass/Vol] 80 mg/dL 0-130 [facility] Serum or plasma urea nitroge n measurement (mass/volume)Ordered By: Dr. Franklin on 07-26-2022 Urea nitrogen [Mass/Vol] 13 mg/dL 7-18 [facility] Thin prep Papanicolaou smear with manual screeningOrdered By: Dr. Franklin on 07-26-2022 Thin prep Papanicolaou smear with manual screening 19 U/L 15-37 [facility] Thin prep Papanicolaou smear with manual screening 6 5-15 [facility] Alternaria alternata IgE ser umon 03-24-2022 A. alternata IgE Qn (S) <0.10 kU/L Class 0 [facility] Work Phone: Laboratory - Miscellaneous t estson 03-24-2022 Service comment (Unsp spec) [Interp] Comment . [facility] Work Phone: Comment on above: Levels of Specific I gE Class Description of Class ----- < 0.10 0 Negative 0.10 - 0.31 0/I Equivocal/Low 0.32 - 0.55 I Low 0.56 - 1.40 II Moderate 1.41 - 3.90 III High 3.91 - 19.00 IV Very High 19.01 - 100.00 V Very High >100.00 [facility] No Panel Informationon 03-24 Common Ragweed (Short) Allergen 0.14 kU/L Class 0/I [facility] Work Phone: Ghanaian Plantain Allergen (RAST) 0.14 kU/L Class 0/I [facility] Work Phone: Mouse Urine Allergen IgE Antibody <0.10 kU/L Class 0 [facility] Work Phone: Comment on above: Performed at: [address] [id number] Director: Jose Armendariz MD, Phone: [phone] Serum Berm[place] grass IgE anti body assay (units/volume)on 03-24-2022 Bermuda grass IgE Qn (S) 0.17 kU/L Class 0/I [facility] Work Phone: Serum Dermatophagoides farin ae specific IgE antibody assay (units/volume)on 03-24-2022 British house dust mite IgE Qn (S) <0.10 kU/L Class 0 [facility] Work Phone: Serum house dust mi te IgE antibody assay (units/volume)on 03-24-2022 house dust mite IgE Qn (S) <0.10 kU/L Class 0 [facility] Work Phone: Serum [place] blue grass Ig E antibody assay (units/volume)on 03-24-2022 [place] blue grass IgE Qn (S) 1.44 kU/L Class III [facility] Work Phone: Serum cat dander IgE antibod y assay (units/volume)on 03-24-2022 Cat dander IgE Qn (S) <0.10 kU/L Class 0 [facility] Work Phone: Serum dog epithelium IgE ant ibody assay (units/volume)on 03-24-2022 Dog epithelium IgE Qn (S) <0.10 kU/L Class 0 [facility] Work Phone: Serum white elm IgE antibody assay (units/volume)on 03-24-2022 [place] IgE Qn (S) 0.21 kU/L Class 0/I [facility] Work Phone: Serum white oak IgE antibody assay (units/volume)on 03-24-2022 [place] IgE Qn (S) 0.12 kU/L Class 0/I [facility] Work Phone: No Panel Informationon 02-21 Prostate Specific Antigen Total 0.01 ng/mL 0.0-4.0 [facility] Work Phone: Comment on above: This test was perfor med using the TPSA assay method for the[employer] chemistry system. Values obtained with differentassay methods cannot be used interchangably.When changing PSA assays in the course of monitoring apatient, additional sequential testing should be carriedout to confirm baseline values. No Panel Informationon 08-17 Prostate Specific Antigen Total < 0.01 ng/mL 0.0-4.0 [facility] Work Phone: Comment on above: This test was perfor med using the TPSA assay method for the[employer] chemistry system. Values obtained with differentassay methods cannot be used interchangably.When changing PSA assays in the course of monitoring apatient, additional sequential testing should be carriedout to confirm baseline values. No Panel Informationon 05-25 Prostate Specific Antigen Screen 0.02 ng/mL 0.00-4.00 [facility] Work Phone: Comment on above: This test was perfor med using the TPSA assay method for [employer] chemistry system. Values obtained with differentassay methods cannot be used interchangably.When changing PSA assays in the course of monitoring apatient, additional sequential testing should be carriedout to confirm baseline values. CNPDiandra 03-15-2021 CNPN Telephone (4CQ) LISANDRO YUN ([id number]) 1955 M Date Time Provider Department 03/15/21 SELF 4CQ During your visit today, we recorded the following information about you: Isa Rodriguez 03/15/2021 10:08 AM Signed Patient requesting 02/26 CT on a disk and report. 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 [facility] Allergies As of Date: 03/15/2021 (Not on File) Date Reviewed: Never Reviewed Reason for Visit: disk and report [Other] Problem List As Of Date: 03/15/2021 (None) Encounter Status:Closed by ISA MOREIRA on 03/19/[address] [facility] [address] CHEST WO CONTRASTon 02-26 CT CHEST WO CONTRAST * * *Final Report* * * DATE OF EXAM: Feb 26 2021 11:52AM [facility] 0349 - CT CHEST WO CONTRAST / PROCEDURE REASON: Hemoptysis * * * * Physician Interpretation * * * * EXAMINATION: CHEST CT WITHOUT CONTRAST Indication: Hemoptysis Technique: Spiral CT acquisition of the chest from the thoracic inlet to the upper abdomen without contrast. M: [id number] CT Dose-Length Product: 285 mGy*cm CT Dose Reduction Employed: Automated exposure control(AEC) and iterative recon COMPARISON: There are no prior relevant examinations available for comparison within the [facility]. RESULT: Limitations: None. Lines, tubes, and devices: None. Lung parenchyma and pleura: The central airways are patent. Scattered areas of subpleural reticulation noted especially at the lower lung zones. Triangular-shaped 4 mm juxtapleural nodularity noted at the left base laterally most likely nodular scarring. There are no suspicious pulmonary nodules or masses. Thoracic:: Shotty fatty replaced middle mediastinal, AP window, bilateral axillary and bilateral hilar lymph nodes are present. No pathologic lymphadenopathy in the axillary, mediastinal, or hilar regions by size criteria. Heart and mediastinum: The thoracic aorta and main pulmonary artery are normal in caliber. The cardiac chambers are normal in size. No coronary artery atherosclerotic calcifications are noted, although the study is not optimized for coronary assessment. No pericardial effusion or thickening. There is a small hiatal hernia. Bones and soft tissues: No destructive bone lesion. Chest wall is unremarkable. Upper abdomen: No acute abnormality in the imaged upper abdomen. Cholelithiasis is present without radiographic evidence of acute cholecystitis. IMPRESSION: Mild subpleural reticulation and a 4 mm triangular-shaped juxtapleural nodule at the left lower lung most likely nodular scarring. There are no suspicious pulmonary nodules or spiculated masses. Shotty fatty replaced middle mediastinal, bilateral hilar and axillary nodes. No pathologic adenopathy by size criteria. Acuity: Incidental Finding: Solid: <6 mm (solitary or multiple) Routing Code: N/A Recommendation: No imaging follow-up is recommended Time Frame: N/A Comments: If there are risk factors for lung malignancy, a follow-up chest CT exam could be obtained in 12 months COMMUNICATION:? Results will be communicated with the ordering provider via [place] staff message by [facility] within 2 business days of report finalization. Cyber Security Analyst: YA Transcribe Date/Time: Feb 26 2021 12:48P Dictated by : PATITO LANGSTON MD This examination was interpreted and the report reviewed and electronically signed by: PATITO LANGSTON MD on Feb 26 2021 5:11PM EST Normal [facility] Encounters Encounter Date Encounter Type Care Provider Facility Start: 11-14-2024 End: 11-14-[address] Yg Franklin MD Work Phone: [facility] Work Phone: Start: 11-14-2024 End: 11-14-[address] Magno Clemons MD -Laboratory [place] Work Phone: Start: 11-14-2024 End: 11-14-2024 ambulatory Magno Clemons Facility:[facility] Start: 05-17-2024 End: 05-17-2024 ambulatory Sarah Naranjo Facility:[facility] Start: 02-20-2024 End: 02-20-2024 ambulatory Yg Franklin Facility:[facility] Start: 07-12-2023 End: 07-12-2023 ambulatory [facility] Work Phone: Start: 07-12-2023 End: 07-12-2023 Patient encounter procedure [facility] Start: 05-26-2023 End: 05-26-2023 ambulatory [facility] Work Phone: Start: 05-26-2023 End: 05-26-2023 [facility] Work [facility]: Start: 03-20-2023 End: 03-20-2023 Patient encounter procedure [facility] Start: 02-23-2023 End: 02-23-2023 ambulatory [facility] Work Phone: Start: 02-23-2023 End: 02-23-2023 [facility] Work Phone: Start: 08-17-2022 End: 08-17-2022 ambulatory [facility] Work Phone: Start: 08-17-2022 End: 08-17-2022 Patient encounter procedure [facility] Start: 07-26-2022 End: 07-26-2022 ambulatory [facility] Work Phone: Start: 07-26-2022 End: 07-26-2022 Patient encounter procedure [facility] Start: 05-23-2022 End: 05-23-2022 ambulatory [facility] Work Phone: Start: 05-23-2022 End: 05-23-2022 Patient encounter procedure [facility]-Radiology, [place] Start: 03-24-2022 End: 03-24-2022 ambulatory [facility] Work Phone: Start: 03-24-2022 End: 03-24-2022 Patient encounter procedure [facility] Start: 02-21-2022 End: 02-21-2022 ambulatory [facility] Work Phone: Start: 02-21-2022 End: 02-21-2022 Patient encounter procedure [facility] Start: 08-17-2021 End: 08-17-2021 [facility] Start: 06-29-2021 End: 06-29-2021 Patient encounter procedure [facility], [facility] Start: 05-25-2021 Patient encounter procedure [facility] Procedures Date Procedure Procedure Detail Performing Clinician Start: 11-14-2024 Assay of prostate sp ecific antigen total Dr. Yg Franklin MD Work Phone: Comment on above: This test was perfor med using the [employer] tPSA method. Measured values of a patient sample can vary depending on the testing procedure used. PSA values determined on patient samples by different testing procedures cannot be used interchangeably. If there is a change in PSA assays while monitoring therapy, sequential testing should be performed to confirm baseline values. Start: 05-26-2023 Plain X-ray of toe Start: 05-23-2022 Plain chest X-ray Start: 06-29-2021 Thyroid Plan of Treatment Date Care Activity Detail Author Start: 03-24-2022 [facility] Work Phone: Alternaria alternata IgE Ab [Units/volume] in Serum [facility] Work Phone: British house dust mite IgE Ab [Units/volume] in Serum [facility] Work Phone: [place]erm[place] grass IgE Ab [Units/volume] in Serum [facility] Work Phone: Cat dander IgE Ab [Units/volume] in Serum [facility] Work Phone: Common Ragweed IgE A b [Units/volume] in Serum [facility] Work Phone: Dog epithelium IgE A b [Units/volume] in Serum [facility] Work Phone: house dust mite IgE Ab [Units/volume] in Serum [facility] Work Phone: [place] blue grass IgE Ab [Units/volume] in Serum [facility] Work Phone: Mouse urine proteins RAST [facility] Work Phone: Plantain (Ghanaian) RAST [facility] Work Phone: [place] IgE Ab [Un its/volume] in Serum [facility] Work Phone: [place] IgE Ab [Un its/volume] in Serum [facility] Work Phone: Immunizations Immunization Date Immunization Notes Care Provider [facility] 09-08-2020 Covid (Pfizer) [facility] 08-18-2020 Covid (Pfizer) [facility] Payers Date Payer Category Payer Self-pay [id number] 2024 Unknown [id number] Private Health Insurance [id number] Unknown [id number] Unknown [id number] Unknown [id number] Unknown [id number] Social History Date Type Detail Facility Start: 03-24-2021 End: 03-24-2021 Tobacco smoking status KYIS Unknown if ever smoked [facility] Start: 1955 Sex Assigned At Male [facility] Start: 03-24-2021 Tobacco smoking stat us KYIS Ex-smoker (finding) [facility] Medical Equipment Procedure Code Equipment Code Equipment Origin al Text Equipment Identifier Dates GISEL BUTLER LG FDA Start: 03-31-2021 SEALANT,FLOSEAL HEMOSTATIC 5ML FDA Start: 03-31-2021 Ligation clip, synthetic polymer, non-bioabsorbable [id number] FDA Start: 03-31-2021 Ligation clip, synthetic polymer, non-bioabsorbable [id number] FDA Start: 03-31-2021 Ligation clip, synthetic polymer, non-bioabsorbable [id number] FDA Start: 03-31-2021 Ligation clip, synthetic polymer, non-bioabsorbable [id number] FDA Start: 03-31-2021 GISEL BUTLER LG FDA Start: 03-31-2021 SEALANT,FLOSEAL HEMOSTATIC 5ML FDA Start: 03-31-2021 GISEL BUTLER LG FDA Start: 03-31-2021 SEALANT,FLOSEAL HEMOSTATIC 5ML FDA Start: 03-31-2021 GISEL BUTLER LG FDA Start: 03-31-2021 SEALANT,FLOSEAL HEMOSTATIC 5ML FDA Start: 03-31-2021 CLIP,HEMOLOCK LG WECK FDA Start: 03-31-2021 SEALANT,FLOSEAL HEMOSTATIC 5ML FDA Start: 03-31-2021 CLIP,HEMOLOCK LG WECK FDA Start: 03-31-2021 SEALANT,FLOSEAL HEMOSTATIC 5ML FDA Start: 03-31-2021 CLIP,HEMOLOCK LG WECK FDA Start: 03-31-2021 SEALANT,FLOSEAL HEMOSTATIC 5ML FDA Start: 03-31-2021 CLIP,HEMOLOCK LG WECK FDA Start: 03-31-2021 SEALANT,FLOSEAL HEMOSTATIC 5ML FDA Start: 03-31-2021 CLIP,HEMOLOCK LG WECK FDA Start: 03-31-2021 SEALANT,FLOSEAL HEMOSTATIC 5ML FDA Start: 03-31-2021 CLIP,HEMOLOCK LG WENOE FDA Start: 03-31-2021 SEALANT,FLOSEAL HEMOSTATIC 5ML FDA Start: 03-31-2021 Progress note 02-26-2021 Note Date & Type Note Facility 02-26-2021 Note HNO ID: [id number] Author: Omid Diaz Service: ? Author Type: Optometry Professor Type: Progress Notes Filed: 02/26/2021 11:55 AM Note Text: Radiology Service Progress Note PATIENT NAME: Lisandro Yun DATE OF SERVICE: February 26, 2021 TIME: 11:55 AM PATIENT IDENTITY VERIFICATION COMPLETED USING TWO (2) IDENTIFIERS: Name and Date of confirmed by patient verbally. FALL SCREENING: Has the patient had 2 falls in the last year or 1 fall with injury or currently using an Ambulatory Assistive Device (Walker, Cane, Wheelchair, Crutches, etc.)? No PATIENT GENDER DATA: Male PATIENT RELEVANT IMPLANT DATA REVIEWED: Not Applicable RADIOLOGY DEPARTMENT: CT; Exam(s) Completed: Chest PERIPHERAL IV DATA: Not applicable SIGNED BY: Omid Ramirez February 26, 2021 11:55 AM [facility] Evaluation note Note Date & Type Note Facility Evaluation note No assessment information availa ble [facility] Work Phone: Reason for referral (narrative) Note Date & Type Note Facility Reason for referral (narrative) No reason for referral information available [facility] Work Phone: Summary Purpose Family History No Family History Records Found Relationship Condition Age at Onset Recorded Date/T june father Cardiac disease Unknown Advance Directives No Advanced Directives Records Found Advance Directive Response Recorded Date/ Time Living Will Yes March 24 9:59am Power of Coal [employer] No March 24, 2021 9:59am Advance Directive Response Recorded Date/ Time Living Will Yes March 24 8:59am Power of [employer] No March 24, 2021 8:59am Chief Complaint and Reason for Visit Chief Complaint PSA THYROID NODULE Chief Complaint Cough Chief Complaint contusion distal 2nd L toe Additional Source Comments (unrecognized sect ion and content) No Status Records FoundNo Status Records Found INFORMATION SOURCE (unrecogn ized section and content) DATE CREATED AUTHOR 07/10/2021 [facility] DATE CREATED AUTHOR AUTHOR'S ORGANIZ ATION 11/23/2024 [facility] Goals (unrecognized section and content) Goals may be documented in a n alternate sectionGoals may be documented in an alternate sectionGoals may be documented in an alternate sectionGoals may be documented in an alternate sectionGoals may be documented in an alternate sectionGoals may be documented in an alternate sectionGoals may be documented in an alternate sectionGoals may be documented in an alternate sectionGoals may be documented in an alternate sectionGoals may be documented in an alternate section Care Teams (unrecognized sec tion and content) Team Status: Active Member Role Status Dates Dr. Yg Nichole MD Family Provider Active Dr. Yg Franklin MD Primary Care Provider Active Team Status: Inactive Member Role Status Dates Dr. Yg Franklin MD Primary Care Provider Active Dr. Logan Rojas MD Attending Provider, Referrin g Provider Active Team Status: Inactive Member Role Status Dates Dr. Yg Franklin MD Primary Care Pr rashader, Attending Provider, Referring Provider Active Team Status: Inactive Member Role Status Dates Dr. Yg Franklin MD Primary Care Provider Active Dr. Magno Clemons MD Attending Provider, Referr ing Provider Active Team Status: Inactive Member Role Status Dates Dr. Yg Franklin MD Primary Care Provider Active PERRY Williamson Attending Provider Active Team Status: Inactive Member Role Status Dates Dr. Yg Franklin MD Primary Care Provider, Attend ing Provider Active Team Status: Inactive Member Role Status Dates Dr. Leoncio Madden MD Attending Provider, Referring Prov ider Active Dr. Yg Franklin MD Primary Care Provider Active Team Status: Inactive Member Role Status Dates Dr. Yg Franklin MD Primary Care Provider Active Start: November 14, 2024 End: November 14, 2024 Dr. Magno Clemons MD Attending Provider Active Start: November 14, 2024 End: November 14, 2024 Dr. Magno Clemons MD Referring Provider Active Start: November 14, 2024 End: November 14, 2024 FOR RECORDS PERTAINING TO PATIENTS WHO ARE OR HAVE BEEN ENROLLED IN A CHEMICAL DEPENDENCY/SUBSTANCEABUSE PROGRAM, SOME INFORMATION MAY BE OMITTED. This clinical summary was aggregated from multiple sources. Caution should be exercised in using it in the provision of clinical care. This summary normalizes information from multiple sources, and as a consequence, information in this document may materially change the coding, format and clinical context of patient data. In addition, data may be omitted in some cases. CLINICAL DECISIONS SHOULD BE BASED ON THE PRIMARY CLINICAL RECORDS. [facility] [employer] provides no warranty or guarantee of the accuracy or completeness of information in this document.
[2025-05-16 15:46] LABS: PSA,Total- Diagnostic 0.11 ng/mL (0.00-4.00)
== END | disposition home or self-care (01) ==
LOC: MTLAB 13:31
PROVIDERS: PCP Family Medicine; Referring Provider Urology; Visit Provider Urology
DX: C61 Malignant neoplasm of prostate (principal)
CPT/HCPCS: 36415; 84153